=== PATIENT | male | born 1955 | race Caucasian/White ===

== ENCOUNTER 2016-12-03 16:54 | Emergency (ER) | payer MEDICARE, MEDICAID ==
[2016-12-03 18:00] VITALS: BP 152/80
--- NOTE | 2016-12-03 19:07 | UC ---
UC General HPI - HPI Summary HPI Summary: ABSCESS ON LEFT BUTOCKS AND GLUTEAL CREASE. HAS HAD FIRM ABSCESS FOR A NUMBER OF WEEKS, PAIN WORSE SINCE YESTERDAY. HAD BEEN SCHEDULED FOR SURGERY RECENTLY BUT "CHICKENED OUT". NOW PAIN AND SWELLING ARE WORSENING, WOULD LIKE TO GET IT TAKEN CARE OF. NO FEVER. NO SIGNIFICANT DRAINAGE. DOES NOT EXTEND INTO ANUS, NO PAIN WITH BOWEL MVMT. PAIN WITH PRESSURE TOUCH AND SITTING DOWN. - History of Current Complaint Chief Complaint: UC Stated Complaint: BOIL ON BOTTOM Time Seen by Provider: 12/03/16 18:42 Hx Obtained From: Patient Onset/Duration: Gradual Onset, Lasting Weeks, Worse Since - LAST TWO DAYS Onset Severity: Moderate Current Severity: Severe Associated Signs & Symptoms: Negative: Anticoagulation Therapy, Back Pain, Confusion, Chest Pain, Decreased Responsiveness, Diarrhea, Dysuria, Fever, Headache, Melena, Vomiting - Allergy/Home Medications Allergies/Adverse Reactions: Allergies Allergy/AdvReac Type Severity Reaction Status Date / Time Corticosteroids Allergy Intermediate Swelling Verified 12/03/16 17:49 Prednisone Allergy Intermediate Swelling Verified 12/03/16 17:49 Bee Venom Allergy Unknown Verified 12/03/16 17:49 Reaction Details Home Medications: Home Medications Mupirocin 2% CREAM* [Bactroban 2% CREAM*] 1 applic TOPICAL TID 12/03/16 [ History Confirmed 12/03/16] Spironolactone & Hydrochloroth [Aldactazide 25-25 mg-] 1 tab PO DAILY 12/03/16 [ History Confirmed 12/03/16] PMH/Surg Hx/FS Hx/Imm Hx Previously Healthy: Yes Cardiovascular History Of: Reports: Cardiac Disorders - [place], 2 stents, Hypertension Denies: Congestive Heart Failure Respiratory History Of: Reports: COPD, Asthma, Pneumonia, Pulmonary Embolism Cancer History Of: Denies: Lung Cancer - Surgical History Surgical History: Yes Surgery Procedure, Year, and Place: LEFT THUMB - Family History Known Family History: Positive: Respiratory Disease - COPD, Other - Both parents -- [place] - Social History Occupation: Employed Full-time Lives: With Family Alcohol Use: Weekly Alcohol Amount: 3-4 Substance Use Type: None Substance Use Comment - Amount & Last Used: smokes marijuana once/twice a month Smoking Status (MU): Former Smoker Amount Used/How Often: chain smoker- "if i'm awake, i'm smoking" Have You Smoked in the Last Year: Yes When Did the Patient Quit Smoking/Using Tobacco: quit 08/2016 - Immunization History Most Recent Influenza Vaccination: 07/2016 Most Recent Tetanus Shot: 2012 Most Recent Pneumonia Vaccination: 2013 Review of Systems Constitutional: Negative Skin: Other - ABSCESS GLUTEAL CLEFT AND LEFT MEDIAL GLUTEAL CREASE Eyes: Negative ENT: Negative Respiratory: Negative Cardiovascular: Negative Gastrointestinal: Negative Genitourinary: Negative Motor: Negative Neurovascular: Negative Musculoskeletal: Negative Neurological: Negative Psychological: Negative All Other Systems Reviewed And Are Negative: Yes Physical Exam Triage Information Reviewed: Yes Appearance: Well-Appearing, Well-Nourished, Pain Distress Vital Signs: Initial Vital Signs Temp 98.4 F 12/03/16 17:54 Pulse 82 12/03/16 17:54 Resp 20 12/03/16 17:54 BP 152/80 12/03/16 17:54 Pulse Ox 91 12/03/16 17:54 Vital Signs Reviewed: Yes Eye Exam: Normal ENT Exam: Normal ENT: Positive: Normal ENT inspection, Hearing grossly normal, Pharynx normal, TMs normal Dental Exam: Normal Neck exam: Normal Neck: Positive: Supple, Nontender, No Lymphadenopathy Respiratory Exam: Normal Respiratory: Positive: Chest non-tender, Lungs clear, Normal breath sounds, No respiratory distress, No accessory muscle use Cardiovascular Exam: Normal Cardiovascular: Positive: RRR, No Murmur, Pulses Normal Abdominal Exam: Normal Abdomen Description: Positive: Nontender, No Organomegaly Musculoskeletal Exam: Normal Musculoskeletal: Positive: Strength Intact, ROM Intact Neurological Exam: Normal Psychological Exam: Normal Psychological: Positive: Normal Response To Family Skin: Positive: Other - INDURATED ABSCESS GLUTEAL CLEFT AND MEDIAL LEFT GLUTEAL CREASE Course/Dx - Differential Dx - Multi-Symptom Differential Diagnoses: Other - PILONIDAL CYST GLUTEAL ABSCESS Provider Diagnoses: PILONIDAL CYST. INDURATED ABSCESS LEFT MEDIAL GLUTEAL CREASE Discharge - Discharge Plan Condition: Stable Disposition: HOME Prescriptions: HYDROcodone/ACETAMIN 5-325 MG* [[place] 5-325 TAB*] 1 tab PO Q8H PRN #15 tab MDD THREE TABS PRN Reason: Pain Sulfamethox/Trimethoprim DS* [Bactrim DS 800/160 TAB*] 1 tab PO BID #20 tab Patient Education Materials: Pilonidal Cyst (GEN), Abscess (ED) Referrals: Nic Dodson MD [Primary Care Provider] - Markus Benson MD [Medical Doctor] - Images Front/Back of Body, Lg ([place]): 1 - 12 CM OF TENDER INDURATION ALONG LEFT MEDIAL GLUTEAL CREASE AND GLUTEAL CLEFT
== END 2016-12-03 19:13 | disposition home or self-care (01) ==
LOC: UCEAST 16:54
DX: L05.01 Pilonidal cyst with abscess (principal); Z88.8 Allergy status to other drugs, medicaments and biological substances; F12.90 Cannabis use, unspecified, uncomplicated; Z87.891 Personal history of nicotine dependence
CPT/HCPCS: 99212; G0463

== ENCOUNTER 2017-02-24 02:11 | Inpatient (IN) | payer MEDICARE, MEDICAID ==
[2017-02-24] MEDS ORDERED: NS 0.9% 1000 ML* 1,000 ML IV ONE (02:29)
[2017-02-24 02:56] LABS: Hematocrit 40 % (42-52); Hemoglobin 12.9 g/dl (14.0-18.0); Mean Corpuscular HGB Conc 33 g/dl (31-36); Mean Corpuscular Hemoglobin 30 pg (27-31); Mean Corpuscular Volume 92 fL (80-94); Red Blood Count 4.31 10^6/ul (4.0-5.4); Red Cell Distribution Width 16 % (10.5-15); White Blood Count 14.4 10^3/ul (3.5-10.8)
[2017-02-24 03:03] LABS: Add Diff/Slide Review? Slide Review Added; Comments Flag Yes
[2017-02-24 03:11] LABS: Albumin 3.9 g/dL (3.2-5.2); BUN/Creatinine Ratio 15.8 (8-20); C Reactive Protein 6.56 mg/L (< 5.00); Calcium 9.1 mg/dL (8.6-10.3); EGFR Non-African American 80.1 (>60); Potassium 4.5 mmol/L (3.5-5.0); Total Bilirubin 0.4 mg/dL (0.2-1.0); Total Protein 6.9 g/dL (6.4-8.9)
[2017-02-24 03:22] LABS: Mean Platelet Volume 9 um3 (7.4-10.4)
[2017-02-24] MEDS ORDERED: Iohexol 300* (CONTRAST) 10 ML SDV IV ONE (04:20)
[2017-02-24] MEDS ORDERED: Ondansetron INJ* 2 MG/ML VIAL ONE (04:20)
[2017-02-24] MEDS ORDERED: Ondansetron INJ* 2 MG/ML VIAL IV ONE (04:27)
--- NOTE | 2017-02-24 05:52 | ED ---
I, Doctor,Brandy, scribed for Markus Vela MD on 02/24/17 at 0244 . GI/ HPI - HPI Summary HPI Summary: 61 year old male brought to [facility] by EMS with bloody stool and abdominal pain beginning at 1:00 am today. He describes the pain as 'cramping' and reports increased nausea as well; he rates his pain as 6/10. Additionally, pt describes his stool as very loose and watery. He has not experienced any episodes similar to this in the past. He is currently taking blood thinners and has a PMHx of [place] a few years ago. - History of Current Complaint Chief Complaint: EDGIBleed Time Seen by Provider: 02/24/17 02:26 Stated Complaint: RECTAL BLEED Hx Obtained From: Patient Onset/Duration: Started Hours Ago Severity: Moderate Current Severity: Moderate Pain Intensity: 6 - on 0-10 numerical scale Location of Pain: Diffuse Pain Characteristics: Cramping Associated Signs and Symptoms: Positive: Nausea, Blood w/Stool, Diarrhea. Negative: Fever - Additional Pertinent History Primary Care Physician: [email or web address] - Allergy/Home Medications Allergies/Adverse Reactions: Allergies Allergy/AdvReac Type Severity Reaction Status Date / Time Corticosteroids Allergy Intermediate Swelling Verified 12/03/16 17:49 Prednisone Allergy Intermediate Swelling Verified 12/03/16 17:49 Bee Venom Allergy Unknown Verified 12/03/16 17:49 Reaction Details Home Medications: Home Medications Aspirin 81 MG TAB 81 mg PO DAILY 02/24/17 [History Confirmed 02/24/17] Combivent Respimat (NF) 2 puff INH DAILY 02/24/17 [History Confirmed 02/24/17] Furosemide TAB* [Lasix TAB*] 1 tab PO DAILY 02/24/17 [History Confirmed 02/24/17 ] Perforomist NEB.SOLN*(NF) 20 mcg INH DAILY 02/24/17 [History Confirmed 02/24/17] Testosterone Cypionate 1 ml IM SEE INSTRUCTIONS 02/24/17 [History Confirmed ] PMH/Surg Hx/FS Hx/Imm Hx Cardiovascular History: Reports: Hx Coronary Artery Disease, Hx Hypertension, Hx Myocardial Infarction Denies: Hx Cardiac Arrest, Hx Congestive Heart Failure, Hx Hypotension, Hx Syncope Respiratory History: Reports: Hx Asthma, Hx Chronic Obstructive Pulmonary Disease (COPD), Hx Pneumonia, Hx Pulmonary Embolism, Other Respiratory Problems/ Disorders - PN Denies: Hx Lung Cancer - Surgical History Surgery Procedure, Year, and Place: LEFT THUMB Hx Anesthesia Reactions: No - Immunization History Date of Tetanus Vaccine: 2013 Date of Influenza Vaccine: 2013 Infectious Disease History: No Infectious Disease History: Denies: Traveled Outside the [place] in Last 30 Days - Family History Known Family History: Positive: Respiratory Disease - COPD, Other - Both parents -- [place] - Social History Alcohol Use: Weekly Alcohol Amount: 3-4 Hx Substance Use: Yes Substance Use Comment - Amount & Last Used: smokes marijuana once/twice a month Hx Tobacco Use: Yes Smoking Status (MU): Current Every Day Smoker Amount Used/How Often: chain smoker- "if i'm awake, i'm smoking" Have You Smoked in the Last Year: Yes Review of Systems Negative: Fever Positive: Abdominal Pain, Diarrhea - very loose stool with blood , Nausea All Other Systems Reviewed And Are Negative: Yes Physical Exam Triage Information Reviewed: Yes Vital Signs On Initial Exam: Initial Vitals Temp Pulse Resp BP Pulse Ox 97.2 F 70 18 110/59 96 02/24/17 02:15 02/24/17 02:15 02/24/17 02:15 02/24/17 02:15 02/24/17 02:15 Vital Signs Reviewed: Yes Appearance: Positive: Well-Appearing, Pain Distress - mild discomfort Skin: Positive: Warm Head/Face: Positive: Normal Head/Face Inspection Eyes: Positive: ASIA ENT: Positive: Hearing grossly normal Neck: Positive: Supple Respiratory/Lung Sounds: Positive: Breath Sounds Present Cardiovascular: Positive: RRR Abdomen Description: Positive: Soft, Other: - mild diffuse abd tenderness. Negative: Distended Bowel Sounds: Positive: Present Musculoskeletal: Positive: Strength/ROM Intact Neurological: Positive: Alert, Oriented to Person Place, Time Diagnostics - Vital Signs Vital Signs Temp Pulse Resp BP Pulse Ox 02/24/17 02:15 97.2 F 70 18 110/59 96 - Laboratory Lab Results: Lab Results 02/24/17 02/24/17 02/24/17 Range/Units 02:20 02:20 04:25 WBC 14.4 H (3.5-10.8) 10^3/ul RBC 4.31 (4.0-5.4) 10^6/ul Hgb 12.9 L (14.0-18.0) g/dl Hct 40 L (42-52) % MCV 92 (80-94) fL MCH 30 (27-31) pg MCHC 33 (31-36) g/dl RDW 16 H (10.5-15) % Plt Count 303 (150-450) 10^3/ul MPV 9 (7.4-10.4) um3 Neut % (Auto) 68.6 (38-83) % Lymph % (Auto) 19.5 L (25-47) % [place] % (Auto) 9.0 (1-9) % Eos % (Auto) 2.0 (0-6) % Baso % (Auto) 0.9 (0-2) % Absolute Neuts (auto) 9.9 H (1.5-7.7) 10^3/ul Absolute Lymphs (auto) 2.8 (1.0-4.8) 10^3/ul Absolute Monos (auto) 1.3 H (0-0.8) 10^3/ul Absolute Eos (auto) 0.3 (0-0.6) 10^3/ul Absolute Basos (auto) 0.1 (0-0.2) 10^3/ul Absolute Nucleated RBC 0.02 10^3/ul Nucleated RBC % 0.2 Sodium 139 (133-145) mmol/L Potassium 4.5 (3.5-5.0) mmol/L Chloride 103 (101-111) mmol/L Carbon Dioxide 29 (22-32) mmol/L Anion Gap 7 (2-11) mmol/L BUN 15 (6-24) mg/dL Creatinine 0.95 (0.67-1.17) mg/dL Est GFR ( Amer) 103.0 (>60) Est GFR (Non-Af Amer) 80.1 (>60) BUN/Creatinine Ratio 15.8 (8-20) Glucose 113 H (70-100) mg/dL Lactic Acid 1.9 (0.5-2.0) mmol/L Calcium 9.1 (8.6-10.3) mg/dL Total Bilirubin 0.40 (0.2-1.0) mg/dL AST 36 (13-39) U/L ALT 42 (7-52) U/L Alkaline Phosphatase 71 (34-104) U/L C-Reactive Protein 6.56 H (< 5.00) mg/L Total Protein 6.9 (6.4-8.9) g/dL Albumin 3.9 (3.2-5.2) g/dL Globulin 3.0 (2-4) g/dL Albumin/Globulin Ratio 1.3 (1-3) Lipase 32 (11.0-82.0) U/L Result Diagrams: 02/24/17 02:20 02/24/17 02:20 Lab Statement: Any lab studies that have been ordered have been reviewed, and results considered in the medical decision making process. - CT CT A/P W [CT] CT Interpretation Completed By: Radiologist - Findings: No bowel obstruction, frree air, or free fluid. Sigmoid diverticulosis. No diverticulitis or colits. Normal kidneys and urinary tracts. Nondistended urinary bladder. Normal spleen. Normal liver. Normal gallbladder. Normal pancreas. Normal adrenal glands. 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 This is a chronic nonspecific infiltration of the fat of the root of the mesentery. Fine atherosclerotic changes of the distal aorta. Atherosclerotic changes of the iliac vessels. Please note that the celiac artery and SMA are patent but they are very small. Is there any reason for the patient to have a low flow state? 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 Overall no acute abnormalities are identified. - EKG 05:18 Cardiac Rate: NL - 73 bpm EKG Rhythm: Sinus Rhythm - NSR ST Segment: Normal Ectopy: None GIGU Course/Dx - Diagnoses Provider Diagnoses: GI bleed - Physician Notifications Discussed Care Of Patient With: 05:30 - Discussed care of pt with Dr. Brennan ( Hospitalist) Instructed by Provider To: Admit As Inpatient Discharge - Discharge Plan Condition: Guarded Disposition: ADMITTED TO [facility] documentation as recorded by the Doctor hernández Tahera accurately reflects the service I personally performed and the decisions made by me, Markus Vela MD.
--- NOTE | 2017-02-24 07:58 | RAD ---
CLINICAL HISTORY: Pain, lower abdominal pain COMPARISON: November 24, 2012 TECHNIQUE: Multiple contiguous axial CT scans were obtained of the abdomen and pelvis after the administration of intravenous contrast. Coronal and sagittal multiplanar reformations are submitted for review. Oral contrast was administered. Delayed images were obtained through the abdomen and pelvis. FINDINGS: LUNG BASES: The lung bases are clear. LIVER: The liver is diffusely low in attenuation compared to the spleen. There are no focal hepatic parenchymal masses. BILE DUCTS: There is no intrahepatic or extrahepatic biliary dilatation. GALLBLADDER: The gallbladder is normal, without pericholecystic inflammatory change. PANCREAS: The pancreas is normal, without mass or ductal dilatation. SPLEEN: Normal in size and appearance. UPPER GI TRACT: Evaluation of the gastrointestinal tract is limited by incomplete gastric distention. The upper GI tract is unremarkable. SMALL BOWEL AND MESENTERY: The small bowel is normal in contour, course, and caliber. There is no obstruction or dilatation. There are subcentimeter short axis lymph nodes of the upper mesentery. There is mild stranding of the mesenteric fat. COLON: There is scattered diverticula of the distal colon.. There is no pericolonic inflammatory change. There is a tubular, vermiform, hollow viscus that is blind ending, and originates from the cecum, consistent with a normal appendix. There is no periappendiceal inflammatory change. ADRENALS: Normal bilaterally. KIDNEYS: The kidneys are normal in shape, size, contour, and axis. There is no hydronephrosis or nephrolithiasis. BLADDER: The bladder is collapsed and is not well evaluated PELVIC ORGANS: The prostate gland is normal. The seminal vesicles are symmetric. AORTA: There is calcific atherosclerotic disease of the abdominal aorta and its branches, without aneurysmal dilatation. 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 ABDOMINAL WALL: There is no evidence for abdominal wall hernia. BONES AND SOFT TISSUES: There are mild diffuse degenerative changes. OTHER: None IMPRESSION: 1. FATTY LIVER. 2. ATHEROSCLEROSIS. 3. SUBCENTIMETER SHORT AXIS] 4. MESENTERIC LYMPH NODES WITHOUT LYMPHADENOPATHY BY SIZE CRITERIA. 5. THERE IS MINIMAL STRANDING OF THE MESENTERIC FAT SUGGESTIVE OF MESENTERIC PANNICULITIS
[2017-02-24] MEDS ORDERED: Ipratropium 0.5MG/2.5ML NEB* 0.5 MG/2.5 ML NEB.SOLN INH PRN (08:31)
[2017-02-24] MEDS ORDERED: Acetaminophen TAB* 325 MG PO PRN (09:38)
[2017-02-24] MEDS: Budesonide NEB* 0.5 MG/2 ML NEB.SOLN INH SCH ×2 (10:06→19:57)
[2017-02-24] MEDS: Aspirin Low Dose CHEW TAB* 81 MG PO SCH (10:14)
[2017-02-24] MEDS: Atorvastatin* 80 MG TAB PO SCH (10:14)
[2017-02-24] MEDS: Metoprolol Succinate XL TAB* 50 MG PO SCH (10:14)
[2017-02-24] MEDS: NS 0.9% 1000 ML* 1,000 ML IV SCH ×2 (10:58→21:21)
[2017-02-24 11:04] LABS: Urine Bilirubin Negative (Negative); Urine Glucose Negative (Negative); Urine Nitrite Negative (Negative)
[2017-02-24] MEDS: Ondansetron INJ* 2 MG/ML VIAL IV PRN (12:04)
[2017-02-24] MEDS: Simethicone CHEW TAB* 80 MG PO PRN ×2 (14:49→21:20)
--- NOTE | 2017-02-24 15:05 | HP ---
CC: Dr. Dodson. HISTORY AND PHYSICAL: DATE OF ADMISSION: 02/24/17 PRIMARY CARE PHYSICIAN: Dr. Dodson. CHIEF COMPLAINT: Abdominal pain and bloody diarrhea. HISTORY OF PRESENT ILLNESS: Mr. Davalos is a 61-year-old male with past medical history of hypertension; CAD, status post [place] and stent placement in 2015; COPD, on home oxygen, who presents to the hospital with abdominal pain and bloody diarrhea. The patient states for the past few weeks he has felt weak and somewhat more short of breath than normal. He states he was recently found to have a low testosterone and got a prescription for testosterone injections; however has not started this yet. Yesterday, he noticed in the afternoon that he had more watery stool than usual, when he wiped he noticed that there was some blood mixed in with the stool. Early this morning around 1 a.m. he awoke with acute crampy abdominal pain and the urge to go to the bathroom. He went to the toilet and had very watery bloody stool that he said likely consistent mostly of just blood. After this episode, he had some lightheadedness and near syncope. He went to his bed and laid down for a bit, then the abdominal pain recurred and he had another episode of bloody bowel movement and again a near syncopal episode. At this point, he called his neighbors as well as EMS and was taken here to the hospital. He said that since coming to the hospital, he has had 2 additional episodes; however, he felt that the last one was clearing up a little bit and seemed to have a bit more normal stool mixed in. He states the abdominal pain is crampy and relatively diffuse. He says the discomfort is temporarily when he moves his bowels. He has had some nausea but no emesis. The patient has been on antibiotics, the last time was about a month and a half to 2 months ago, which he reports was for a cyst on his buttocks. Denies any sick contacts. He states that yesterday for food he had some cereal and toast in the morning, no lunch and that at night had some chicken, rice, asparagus and potatoes. He states the night before he had some goulash that had some beef in it. This was frozen that his sister had made sometime recently. Again , he denies sick contacts. He is on aspirin and Brilinta. He denies any fever, chills, dysuria, hematuria. He has never had a colonoscopy before. PAST MEDICAL HISTORY: CAD, status post [place] with stent placement in July 2015. Hypertension. COPD, on home oxygen 2 to 3 L. PAST SURGICAL HISTORY: Repair of a broken arm. ALLERGIES: STEROIDS and BEE STINGS. FAMILY HISTORY: Significant for father with COPD and cancer in both his mother and father. SOCIAL HISTORY: The patient is a former [id number] smoker, quit in 2016. He states he drinks 2 to 3 beers up to 2 to 3 times a week. Denies any illicit drug use. REVIEW OF SYSTEMS: A 12-point review of systems negative except for that as noted in the HPI. PHYSICAL EXAMINATION GENERAL: The patient is a middle-aged male that appears slightly older than stated age, lying in bed, in no apparent distress. VITAL SIGNS: On admission, temperature 97.2, heart rate of 70, respiratory rate of 18, O2 saturation 96% on 2 L, blood pressure 110/59. HEENT: Pupils equal, round and reactive to light and accommodation. Anicteric sclerae. Moist mucous membranes. NECK: No cervical adenopathy. LUNGS: Clear to auscultation bilaterally. No wheezes, rales or rhonchi. CARDIOVASCULAR: Regular rate and rhythm. S1, S2. No murmurs, gallops, or rubs. ABDOMEN: Soft, mildly distended. Mild tenderness to palpation diffusely. No rebound or guarding. Hyperactive bowel sounds. EXTREMITIES: No cyanosis, clubbing or edema. NEUROLOGIC: The patient is alert and oriented x3. No focal neurological deficits. DIAGNOSTIC STUDIES/LABORATORY DATA: White blood cell count of 14.4, hemoglobin of 12.9, hematocrit of 40, platelets of 303. Sodium 139, potassium 4.5, chloride 103, carbon dioxide 29, BUN of 15, creatinine of 0.95, glucose of 113, lactic acid of 1.9, calcium of 9.1. LFTs within normal limits. CRP of 6.5 , lipase of 32. EKG, personally reviewed, shows normal sinus rhythm. CT of the abdomen and pelvis shows fatty liver atherosclerosis, mesenteric lymph nodes without lymphadenopathy. 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 ASSESSMENT AND PLAN: Abdominal pain and bloody diarrhea in a 61-year-old male with a past medical history of hypertension, coronary artery disease status post myocardial infarction, and chronic obstructive pulmonary disease. 1. Bloody diarrhea. CT shows some evidence of panniculitis, however no evidence of colitis, this could potentially be an infectious etiology. Ordered a C. diff stool culture and a fecal lactoferrin. Also an INR was not ordered in the emergency department, I will add this on. Not entirely consistent with ischemic colitis, no CT changes. As per patient report, the bleeding seems to be slowing. We will continue to trend his hemoglobin and hematocrit for now. The patient does not need a transfusion at this point. We will continue the patient's baby aspirin and we will hold ticagrelor. Will hold off on a GI consult for now and see how the patient progresses through the day, see if any of his infectious workup is positive. We will keep him on a clear liquid diet for now. 2. Coronary artery disease, status post myocardial infarction. Continue metoprolol, statin, baby aspirin. Hold on ticagrelor for now. 3. Chronic obstructive pulmonary disease. Continue home oxygen. Continue ipratropium, budesonide, p.r.n. albuterol. 4. Code status. The patient is a full code. 5. Surrogate decision maker is patient's sister Siobhan Ramos whose number is . TIME SPENT: Total time spent on this admission 40 minutes, with over half the time spent [id number] with the patient, counseling and coordinating care. ADDENDUM: C diff negative, fecal lactoferrin negative. Have asked GI to evaluate , possible colonoscopy in the morning. [id number]/[facility] #: [id number] [place]
[2017-02-24] MEDS ORDERED: PEG 3000 GI LAVAGE* 1 GALLON PO ONE (17:00)
--- NOTE | 2017-02-24 20:09 | CONS ---
CONSULTATION REPORT: DATE OF CONSULT: 02/24/17 REASON FOR CONSULT: Lower GI bleed. NARRATIVE: Mr. Davalos is a 61-year-old gentleman with a history of COPD, on chronic oxygen; history of CAD, on Brilinta after stent placement 2 years ago, who presents with hematochezia. Yesterday, quite suddenly, he had a bowel movement and noticed blood on the tissue paper. He then awoke at 1 in the morning and he had another bowel movement; this one had a significant amount of blood in the water associated with clots. He felt somewhat faint and presented to the emergency room where again he had 1 or 2 subsequent episodes of rectal bleeding. Vital signs were stable. His initial hemoglobin was 12.9. Further workup has included stool showing him to be Hemoccult positive, C. difficile negative. He did have CAT scan of the abdomen, which showed some atherosclerosis and some mild adenopathy, but no significant colonic pathology. He has been admitted to the general medical floor. He has had a subsequent bowel movement that was brown, but mixed with a small amount of blood. The patient denies any previous history of GI bleeding. He has never had a colonoscopy. PAST MEDICAL HISTORY: Does include CAD, he had a stent placed about 2 years ago and has been on a baby aspirin and Brilinta since; history of COPD, on 2 to 3 L of oxygen chronically; hypertension. He also has had a sebaceous cyst involving his tail bone, which has been monitored by his surgeon. PAST SURGICAL HISTORY: He has had no abdominal surgeries. MEDICATIONS: His at home medicines include: 1. Baby aspirin. 2. Combivent inhaler. 3. Lipitor. 4. Pulmicort inhaler. 5. Lasix. 6. Brilinta. 7. Metoprolol. FAMILY HISTORY: Negative for colorectal cancer. REVIEW OF SYSTEMS: He denies any melena, nausea, or vomiting. He does have some cramping that precedes the bowel movement, but no significant abdominal pain. He states in the last year, he has been feeling very weak, but this has not recently changed. He was found to have a low testosterone level and was prescribed a testosterone supplement, but he has not started that yet. PHYSICAL EXAM: He is a pleasant, obese gentleman, sitting in chair, on oxygen, but in no apparent distress. Blood pressure is 134/72, heart rate is 78 and regular, temperature is 97.4. Lungs reveal a prolonged expiratory phase. Cardiac exam reveals very distant heart sounds, but a regular rhythm. Abdomen is obese and soft without any significant tenderness. LABORATORY DATA: Include a white count of 14.4, hemoglobin of 12.9, MCV of 92, platelets of 303,000. BUN of 15, creatinine of 0.95. IMPRESSION: A 61-year-old gentleman presenting with hematochezia. He does have some mild cramping before a bowel movement, but no significant abdominal pain. He has never had a colonoscopy. Possibilities include diverticular causes, less likely ischemic colitis or malignancy. I explained this to the patient in great detail. We discussed the importance of colonoscopy to identify the cause of bleeding. He is at a slightly higher risk periprocedure given his pulmonary disease and cardiac disease, but I do believe he could tolerate it with moderate sedation. The patient is motivated for the procedure and we therefore will proceed in that fashion for tomorrow. We will prep him today. CC: Dr. Dodson* [id number]/[facility] #: [id number] [place]
[2017-02-25] MEDS: NS 0.9% 1000 ML* 1,000 ML IV SCH (07:19)
[2017-02-25 07:45] LABS: BUN/Creatinine Ratio 13.3 (8-20); Calcium 7.4 mg/dL (8.6-10.3); EGFR African American 120.3 (>60); EGFR Non-African American 93.6 (>60); Potassium 4.4 mmol/L (3.5-5.0)
[2017-02-25] MEDS: Budesonide NEB* 0.5 MG/2 ML NEB.SOLN INH SCH ×2 (07:50→21:16)
[2017-02-25 08:01] LABS: Hematocrit 30 % (42-52); Hemoglobin 9.9 g/dl (14.0-18.0); Mean Corpuscular HGB Conc 33 g/dl (31-36); Mean Corpuscular Hemoglobin 31 pg (27-31); Mean Corpuscular Volume 93 fL (80-94); Mean Platelet Volume 9 um3 (7.4-10.4); Red Blood Count 3.24 10^6/ul (4.0-5.4); Red Cell Distribution Width 16 % (10.5-15); White Blood Count 10.1 10^3/ul (3.5-10.8)
[2017-02-25] MEDS: Simethicone CHEW TAB* 80 MG PO PRN ×3 (08:08→22:41)
[2017-02-25] MEDS: Atorvastatin* 80 MG TAB PO SCH (08:08)
[2017-02-25] MEDS: Metoprolol Succinate XL TAB* 50 MG PO SCH (08:09)
[2017-02-25] MEDS: Aspirin Low Dose CHEW TAB* 81 MG PO SCH (08:09)
[2017-02-25] MEDS ORDERED: Meperidine SYRINGE* 50 MG/ML ONE (13:24)
[2017-02-25] MEDS ORDERED: Midazolam* 1 MG/ML 10 ML VIAL (10 MG) ONE (13:24)
--- NOTE | 2017-02-25 16:27 | PN ---
Subjective Date of Service: 02/25/17 Interval History: HOSPITALIST PROGRESS NOTE Patient seen and examined at bedside. His major complaint is about the colonoscopy prep that he refuses to finish. Denies abdominal pain. Family History: Unchanged from Admission Social History: Unchanged from Admission Past Medical History: Unchanged from Admission Objective Active Medications: Acetaminophen (Tylenol Tab*) 650 mg PO Q4H PRN PRN Reason: PAIN Albuterol (Ventolin Hfa Inhaler*) 1 puff INH Q4H PRN PRN Reason: SOB/WHEEZING Aspirin (Aspirin Low Dose Tab*) 81 mg PO DAILY REPLACED BY [facility] Last Admin: 02/25/17 08:09 Dose: 81 mg Atorvastatin Calcium (Lipitor*) 80 mg PO DAILY REPLACED BY [facility] Last Admin: 02/25/17 08:08 Dose: 80 mg Budesonide (Pulmicort Neb*) 0.5 mg INH RT.BID REPLACED BY [facility] Last Admin: 02/25/17 07:50 Dose: 0.5 mg Ipratropium [place] (Atrovent 0.5 Mg Neb.Cyn*) 0.5 mg INH BID PRN PRN Reason: SHORTNESS OF BREATH Metoprolol Succinate (Toprol Xl Tab*) 50 mg PO DAILY REPLACED BY [facility] Last Admin: 02/25/17 08:09 Dose: 50 mg Ondansetron HCl (Zofran Inj*) 4 mg IV Q6H PRN PRN Reason: NAUSEA Last Admin: 02/24/17 12:04 Dose: 4 mg Simethicone (Mylicon*) 80 mg PO Q6H PRN PRN Reason: Cramping Last Admin: 02/25/17 08:08 Dose: 80 mg Vital Signs 02/25/17 02/25/17 15:32 15:36 Temperature 97.5 F Pulse Rate 139 73 Respiratory 24 Rate Blood Pressure 123/52 (mmHg) O2 Sat by Pulse 98 Oximetry Oxygen Devices in Use Now: Nasal Cannula Appearance: Elderly obese male sitting up in a chair in NAD. Eyes: No Scleral Icterus Ears/Nose/Mouth/Throat: Mucous Membranes Moist Neck: Trachea Midline Respiratory: Symmetrical Chest Expansion and Respiratory Effort, - - BS+ bilaterally decreased with no added sounds Cardiovascular: RRR - Normal S1 and S2 Abdominal: NL Sounds; No Tenderness; No Distention Extremities: - - Bilateral LE edema Neurological: Alert and Oriented x 3, NL Muscle Strength and Tone Lines/Tubes/Other Access: Clean, Dry and Intact Peripheral IV Result Diagrams: 02/25/17 04:50 02/25/17 04:50 Assess/Plan/Problems-Billing Assessment: Mr. Davalos is a 61yo F with PMH of CAD s/p stent, HTN, COPD on home O2, who presented to ED with painless hematochezia. - Patient Problems (1) Hematochezia Comment: - Suspect diverticular bleed is the etiology. - For colonoscopy today with GI follow up. (2) Acute blood loss anemia Comment: - Last Hb 9.9. - Continue to monitor H/H. (3) Coronary artery disease Comment: - No complaints of chest pain. - Continue ASA, Atorvastin, and Metoprolol. - Brilinta on hold - will contact his boot repairer to see if double anti- platelet therapy is still indicated. (4) COPD (chronic obstructive pulmonary disease) Comment: - Stable. - Continue bronchodilators and supplemental O2. (5) DVT prophylaxis Comment: - SCDs. (6) Full code status
[2017-02-25 21:01] LABS: Hematocrit 32 % (42-52); Hemoglobin 10.5 g/dl (14.0-18.0)
[2017-02-25 21:04] LABS: Comments Flag Yes
--- NOTE | 2017-02-25 23:15 | PRO ---
PROCEDURE NOTE: DATE OF PROCEDURE: 02/25/17 - inpatient, [facility] 453-01 PROCEDURE: Colonoscopy. INDICATION: Rectal bleeding. REFERRING PHYSICIAN: Dr. Laguerre. MEDICATIONS GIVEN: 1. 25 mg of IV Demerol. 2. 2 mg of IV Versed. PROCEDURE IN DETAIL: After the colonoscopy procedure, including risks, benefits and alternatives not limited to perforation, surgery, and/or were explained to Mr. Davalos, written consent was then obtained. The patient has severe COPD and is oxygen dependent. He wears 3 L of oxygen all day long. He also has coronary artery disease and recently had a stent placed and is on Brilinta for that. After the colonoscopy procedure, including risks, benefits and alternatives not limited to perforation, surgery, and/or were explained to the patient, written consent was then obtained, IV medication was given and a rectal exam was performed. It was unremarkable. An Olympus colonoscope was then inserted into the patient's rectum and advanced very carefully through the entirety of the colon and into the cecal base. Careful and thorough inspection within the cecal base did not reveal any abnormalities. However, the quality of the preparation on the right side of the colon was fairly poor. The patient refused to take the last 25% of his colonoscopy prep this morning, even though he was encouraged to do so by his hospitalist doctor. Thus, lesions may have been missed due to the poor quality of the preparation. I did try and suction and wash as much of this as I could, however , the quality of the preparation still remained poor. Scope was then withdrawn in a very careful manner over the next 8 minutes through the remainder of the colon. He did have diverticulosis, both of the right and left side of the colon , it was mild in nature. No bleeding was seen. No masses were seen in the rectum. I could not do a retroflexion maneuver due to the patient's discomfort. However, a slow pull-through through the anal canal did reveal very small hemorrhoidal tissue. Scope was withdrawn from the the patient. He tolerated the procedure well and was returned to his hospital room in stable condition. IMPRESSION: 1. Complete colonoscopy into the cecum. 2. Very mild diverticulosis. 3. Small internal hemorrhoids. 4. Poor quality of preparation. 5. No obvious etiology was seen for his rectal bleeding. At this point, I have to assume it was diverticular in nature. CC: Dr. Dodson* [id number]/[facility] #: [id number] [facility] HOSPITALFannie
[2017-02-26 05:43] LABS: Hematocrit 29 % (42-52); Hemoglobin 9.3 g/dl (14.0-18.0)
[2017-02-26] MEDS ORDERED: Nitroglycerin TAB 0.4 MG* 0.4 MG TAB ONE (07:54)
[2017-02-26] MEDS: Aspirin Low Dose CHEW TAB* 81 MG PO SCH (07:56)
[2017-02-26] MEDS: Nitroglycerin TAB 0.4 MG* 0.4 MG TAB SL PRN ×2 (07:57→08:19)
[2017-02-26] MEDS: Budesonide NEB* 0.5 MG/2 ML NEB.SOLN INH SCH ×2 (08:04→19:30)
[2017-02-26] MEDS: Atorvastatin* 80 MG TAB PO SCH (08:35)
[2017-02-26] MEDS: Metoprolol Succinate XL TAB* 50 MG PO SCH (09:22)
[2017-02-26] MEDS: Simethicone CHEW TAB* 80 MG PO PRN (09:22)
[2017-02-26] MEDS: Albuterol HFA INHALER* 8 gm MDI INH PRN (09:22)
[2017-02-26] MEDS ORDERED: Furosemide IV* 10 MG/ML 2 ML VIAL (20 MG) IV ONE (10:17)
[2017-02-26] MEDS: Ondansetron INJ* 2 MG/ML VIAL IV PRN (14:10)
[2017-02-26] MEDS ORDERED: Albuterol 2.5 MG/3 ML NEB.SOL* (0.083%) INH PRN (16:08)
--- NOTE | 2017-02-26 16:08 | PN ---
Subjective Date of Service: 02/26/17 Interval History: HOSPITALIST PROGRESS NOTE Patient seen and examined at bedside. No further episodes of bleeding. Had some chest pressure earlier today, now resolved. Still dyspneic, but states not far from his baseline. Family History: Unchanged from Admission Social History: Unchanged from Admission Past Medical History: Unchanged from Admission Objective Active Medications: Acetaminophen (Tylenol Tab*) 650 mg PO Q4H PRN PRN Reason: PAIN Albuterol (Ventolin Hfa Inhaler*) 1 puff INH Q4H PRN PRN Reason: SOB/WHEEZING Last Admin: 02/26/17 09:22 Dose: 1 puff Aspirin (Aspirin Low Dose Tab*) 81 mg PO DAILY [facility] Last Admin: 02/26/17 07:56 Dose: 81 mg Atorvastatin Calcium (Lipitor*) 80 mg PO DAILY [facility] Last Admin: 02/26/17 08:35 Dose: 80 mg Budesonide (Pulmicort Neb*) 0.5 mg INH RT.BID [facility] Last Admin: 02/26/17 08:04 Dose: 0.5 mg Ipratropium [place] (Atrovent 0.5 Mg Neb.Cyn*) 0.5 mg INH BID PRN PRN Reason: SHORTNESS OF BREATH Last Admin: 02/25/17 21:16 Dose: 0.5 mg Metoprolol Succinate (Toprol Xl Tab*) 50 mg PO DAILY [facility] Last Admin: 02/26/17 09:22 Dose: 50 mg Nitroglycerin (Nitroglycerin Tab 0.4 Mg*) 0.4 mg SL Q5M PRN PRN Reason: ANGINA Last Admin: 02/26/17 08:19 Dose: 0.4 mg Ondansetron HCl (Zofran Inj*) 4 mg IV Q6H PRN PRN Reason: NAUSEA Last Admin: 02/26/17 14:10 Dose: 4 mg Simethicone (Mylicon*) 80 mg PO Q6H PRN PRN Reason: Cramping Last Admin: 02/26/17 09:22 Dose: 80 mg Vital Signs 02/26/17 02/26/17 09:18 11:46 Temperature 97.6 F Pulse Rate 66 58 Respiratory 18 Rate Blood Pressure 114/49 109/48 (mmHg) O2 Sat by Pulse 99 97 Oximetry Oxygen Devices in Use Now: Nasal Cannula Appearance: Pleasant gentleman lying in recliner in NAD. Eyes: No Scleral Icterus Ears/Nose/Mouth/Throat: Mucous Membranes Moist Neck: Trachea Midline Respiratory: Symmetrical Chest Expansion and Respiratory Effort, - - BS+ bilaterally decreased with faint wheezes Cardiovascular: RRR - Normal S1 and S2 Abdominal: NL Sounds; No Tenderness; No Distention Extremities: - - Bilateral LE pitting edema Neurological: Alert and Oriented x 3, NL Muscle Strength and Tone Lines/Tubes/Other Access: Clean, Dry and Intact Peripheral IV Nutrition: Taking PO's Result Diagrams: 02/26/17 05:22 02/25/17 04:50 Assess/Plan/Problems-Billing Assessment: Mr. Davalos is a 61yo F with PMH of CAD s/p stent, HTN, COPD on home O2, who presented to ED with painless hematochezia. - Patient Problems (1) Hematochezia Comment: - GI input appreciated - source is likely diverticular bleed. (2) Acute blood loss anemia Comment: - Last Hb 9.3. - No further episodes of hematochezia. - Continue to monitor H/H. (3) Coronary artery disease Comment: - Had some chest pain earlier today, but with no EKG changes and negative serial troponins. - Continue ASA, Atorvastin, and Metoprolol. - Brilinta on hold - Organ Pipe Voicer consult requested to see if double anti- platelet therapy is still indicated. (4) COPD (chronic obstructive pulmonary disease) Comment: - Stable. - Continue bronchodilators and supplemental O2. (5) Diastolic CHF Comment: - Showing signs of fluid overload. - Will start gentle diuresis. (6) DVT prophylaxis Comment: - SCDs. (7) Full code status
[2017-02-27 06:53] LABS: Hematocrit 30 % (42-52); Hemoglobin 9.8 g/dl (14.0-18.0); Mean Corpuscular HGB Conc 33 g/dl (31-36); Mean Corpuscular Hemoglobin 30 pg (27-31); Mean Corpuscular Volume 92 fL (80-94); Mean Platelet Volume 9 um3 (7.4-10.4); Red Blood Count 3.24 10^6/ul (4.0-5.4); Red Cell Distribution Width 16 % (10.5-15); White Blood Count 12.4 10^3/ul (3.5-10.8)
[2017-02-27] MEDS: Albuterol HFA INHALER* 8 gm MDI INH PRN ×2 (07:16→16:42)
[2017-02-27] MEDS: Budesonide NEB* 0.5 MG/2 ML NEB.SOLN INH SCH ×2 (07:17→19:29)
[2017-02-27 07:58] LABS: BUN/Creatinine Ratio 12.8 (8-20); Calcium 8.1 mg/dL (8.6-10.3); EGFR African American 115.5 (>60); EGFR Non-African American 89.8 (>60); Potassium 4.5 mmol/L (3.5-5.0)
[2017-02-27] MEDS ORDERED: Furosemide IV* 10 MG/ML 10 ML VIAL (100 MG) IV SCH (09:00)
[2017-02-27] MEDS: Atorvastatin* 80 MG TAB PO SCH (09:17)
[2017-02-27] MEDS: Simethicone CHEW TAB* 80 MG PO PRN (09:17)
[2017-02-27] MEDS: Metoprolol Succinate XL TAB* 50 MG PO SCH (09:17)
[2017-02-27] MEDS: Aspirin Low Dose CHEW TAB* 81 MG PO SCH (09:17)
--- NOTE | 2017-02-27 10:05 | CONSULT ---
Subjective Date of Service: 02/27/17 Interval History: Admission Date: 02/24/17 Date of consult 02/27/2017 Provider: Hospitalist service PRIMARY CARE PHYSICIAN: Dr. Dodson. End Touching Machine Operator: Dr. Langley CHIEF COMPLAINT: Abdominal pain and bloody diarrhea. Reason for consult: Medication management HISTORY OF PRESENT ILLNESS: Mr. Davalos is a 61-year-old male with past medical history of hypertension; CAD s /p CO 07/2015 s/p PCI/ALYSHA to single vessel non-dominant occluded proximal left circumflex, prior tobacco use quit 08/2016, severe copd on home oxygen, chronic almost daily atypical left sided focal chest pain also previously described in Dr. Langley note from 01/2017. Patient admitted with LGIB after colonoscopy felt by GI to be diverticular in nature now resolved. Patient was left on extended DAPT with aspirin and brillinta 60 mg PO BID. Patient has continued to have the atypical chest pain mostly in the morning during hospitalization short in nature similar to prior. No objective evidence of ischemia such as dynamic ekg changes or an elevated troponin. Last month because of volume overload the spironolactone/hctz was changed to 20 mg of lasix. After IVF has also developed edema and is currently receiving IV lasix with good effect so far. Breathing at baseline no dyspnea at rest but will become dyspneic with minimal activity. PAST MEDICAL HISTORY: CAD, status post CO with stent placement in July 2015. Hypertension. COPD, on home oxygen 2 to 3 L. PAST SURGICAL HISTORY: Repair of a broken arm. ALLERGIES: STEROIDS and BEE STINGS. FAMILY HISTORY: Significant for father with COPD and cancer in both his mother and father. SOCIAL HISTORY: The patient is a former [id number] smoker, quit in 2015. He states he drinks 2 to 3 beers up to 2 to 3 times a week. Denies any illicit drug use. Medications Active Medications: Acetaminophen (Tylenol Tab*) 650 mg PO Q4H PRN PRN Reason: PAIN Albuterol (Ventolin Hfa Inhaler*) 1 puff INH Q4H PRN PRN Reason: SOB/WHEEZING Last Admin: 02/27/17 07:16 Dose: 1 puff Albuterol (Ventolin 2.5 Mg/3 Ml Neb.Santy*) 2.5 mg INH Q4H PRN PRN Reason: SOB/WHEEZING Aspirin (Aspirin Low Dose Tab*) 81 mg PO DAILY [facility] Last Admin: 02/27/17 09:17 Dose: 81 mg Atorvastatin Calcium (Lipitor*) 80 mg PO DAILY [facility] Last Admin: 02/27/17 09:17 Dose: 80 mg Budesonide (Pulmicort Neb*) 0.5 mg INH RT.BID [facility] Last Admin: 02/27/17 07:17 Dose: 0.5 mg Furosemide (Lasix Iv*) 20 mg IV DAILY [facility] Last Admin: 02/27/17 09:17 Dose: 20 mg Ipratropium [place] (Atrovent 0.5 Mg Neb.Santy*) 0.5 mg INH BID PRN PRN Reason: SHORTNESS OF BREATH Last Admin: 02/25/17 21:16 Dose: 0.5 mg Metoprolol Succinate (Toprol Xl Tab*) 50 mg PO DAILY [facility] Last Admin: 02/27/17 09:17 Dose: 50 mg Nitroglycerin (Nitroglycerin Tab 0.4 Mg*) 0.4 mg SL Q5M PRN PRN Reason: ANGINA Last Admin: 02/26/17 08:19 Dose: 0.4 mg Ondansetron HCl (Zofran Inj*) 4 mg IV Q6H PRN PRN Reason: NAUSEA Last Admin: 02/26/17 14:10 Dose: 4 mg Simethicone (Mylicon*) 80 mg PO Q6H PRN PRN Reason: Cramping Last Admin: 02/27/17 09:17 Dose: 80 mg Home Medications: Albuterol/Ipratropium RESP(NF) [Combivent Respimat (NF)] 1 puff INH Q4HR [History Confirmed 02/24/17] Atorvastatin* [Lipitor 80 MG*] 80 mg PO DAILY 08/19/16 [History Confirmed ] Budesonide NEB* [Pulmicort Neb*] 0.5 mg INH BID 08/19/16 [History Confirmed ] Ipratropium 0.5MG/2.5ML NEB* [Atrovent 0.5 MG NEB.SANTY*] 0.5 mg INH BID PRN 08/19 [History Confirmed 02/24/17] Metoprolol Succinate XL TAB* [Toprol XL TAB*] 50 mg PO DAILY 08/19/16 [History Confirmed 02/24/17] Ticagrelor [Brilinta 60 MG TAB] 60 mg PO BID 08/19/16 [History Confirmed ] Aspirin 81 MG TAB 81 mg PO DAILY 02/24/17 [History Confirmed 02/24/17] Combivent Respimat (NF) 2 puff INH DAILY 02/24/17 [History Confirmed 02/24/17] Furosemide TAB* [Lasix TAB*] 1 tab PO DAILY 02/24/17 [History Confirmed 02/24/17 ] Perforomist NEB.SOLN*(NF) 20 mcg INH DAILY 02/24/17 [History Confirmed 02/24/17] Testosterone Cypionate 1 ml IM SEE INSTRUCTIONS 02/24/17 [History Confirmed ] Review of Systems - Measurements Intake and Output: Intake and Output Last 24 Hours 02/25/17 02/26/17 02/27/17 02/28/17 06:59 06:59 06:59 06:59 Intake Total 620 810 Output Total 615 2175 Balance 5 -1365 Weight 203 lb 1.6 oz Intake: Oral 620 810 Output: Urine 615 2175 Other: Estimated Void Medium Date of Last Bowel 02/26/17 Movement # Bowel Movements 0 0 Estimated Stool Amount Large # Voids 1 - Review of Systems Constitutional Symptoms: Negative: Weight Gain, Weight Loss, Weakness, Fatigue, Fever, Night Sweats, Unexplained Falls, Other HEENT: Negative: Normal, Change in Hearing, Vertigo Eyes: Negative: Change in Vision, Double Vision Thyroid: Negative: Constipation, Primary Hypothyroidism, Primary Hyperthyroidism, Weight Loss Pulmonary: Positive: Shortness of Breath, COPD, Exercise Intolerance, Home Oxygen Negative: Cough, Sputum, Hemoptysis, Wheezing, Asthma Cardiology: Positive: Chest Pain, Shortness of Breath, Swelling of Ankles, Edema Gastroenterology: Positive: Abdominal Pain, Blood in Stools, Change in Bowel Habits Genital - Urinary: Negative: Dysuria, Hematuria, Polyuria Musculoskeletal: Negative: Joint Pain, Joint Stiffness, Arthritis, Osteoporosis Endocrinology: Positive: Obesity Negative: Thyroid Problems, Calluses, Polydipsia, Polyuria, Gynecomastia Hematologic/Lymphatic: Positive: Anemia, Use of Antiplatelet Drugs Negative: Easy Brusing, Hx Leukemia, Hx Lymphoma, Use of Anticoagulant, Other Neurology: Negative: Headaches, Migraines, Change in Vision, Diplopia, Dizziness, Change in Balancing, Change in Coordination, Change in Memory, Numbness\ Paresthesiae, Unexplained Weakness, Hx Seizures Psychiatry: Positive: Sexual Dysfunction Negative: Tearfulness, Unusual Fatigue Allergic/Immunologic: Negative: Hx HIV, Immunocompromise Review of Systems Statement: All other review of systems negative, unless stated above. Objective Vital Signs: Temp Pulse Resp BP Pulse Ox 99.0 F 65 18 106/47 99 02/27/17 08:01 02/27/17 08:01 02/27/17 08:01 02/27/17 08:01 02/27/17 08:01 Oxygen Devices in Use Now: Nasal Cannula Appearance: pleasant, nad Ears/Nose/Mouth/Throat: Clear Oropharnyx, Mucous Membranes Moist Neck: Trachea Midline, - - uncertain jvp Respiratory: Symmetrical Chest Expansion and Respiratory Effort, - - crackles bases Cardiovascular: RRR, - - no murmur, 1+ pitting edema b/l Abdominal: NL Sounds; No Tenderness; No Distention Extremities: No Clubbing, Cyanosis Skin: No Rash or Ulcers Neurological: Alert and Oriented x 3 Laboratory Results: 02/27/17 06:16 02/27/17 06:16 INR (Anticoag Therapy) 0.97 (0.89-1.11) 02/24/17 09:13 Total Bilirubin 0.40 mg/dL (0.2-1.0) 02/24/17 02:20 AST 36 U/L (13-39) 02/24/17 02:20 ALT 42 U/L (7-52) 02/24/17 02:20 Alkaline Phosphatase 71 U/L (34-104) 02/24/17 02:20 Total Protein 6.9 g/dL (6.4-8.9) 02/24/17 02:20 Albumin 3.9 g/dL (3.2-5.2) 02/24/17 02:20 Globulin 3.0 g/dL (2-4) 02/24/17 02:20 Albumin/Globulin Ratio 1.3 (1-3) 02/24/17 02:20 02/26/17 02/26/17 02/26/17 08:04 11:04 14:09 Troponin I 0.01 0.01 0.01 Diagnostic Imaging: TTE 07/2015 Mild LVH, normal LVEF 55-60%, normal LA size, normal RV size and function, moderate to severe pulmonary HTN Angiogram 07/2015: LVEF 55% with basal inferior wall hypokinesis, LVEDP 28 mmHg EKG Data: EKG 02/24/2017: NSR, no ischemic changes ekg 02/26/2017: NSR, artifact but no obvious ischemic changes Assessment/Plan Mr. Davalos is a 61-year-old male with past medical history of hypertension; CAD s /p CO 07/2015 s/p PCI/ALYSHA to single vessel non-dominant occluded proximal left circumflex, prior tobacco use quit 08/2016, severe copd on home oxygen, chronic atypical left sided focal chest pain (? related to pulmonary hypertension), pulmonary HTN, volume overload admitted with LGIB in setting of prolonged DAPT use, no evidence of active myocardial ischemia. - Continue aspirin 81 mg PO daily - Discontinue brillinta, has been at least a year since PCI - Continue intensive dose statin - Continue beta-jessika - Continue diuretics Thank you for allowing me to participate in the cardiovascular care of this patient. Please do not hesitate to contact me with questions or concerns.
--- NOTE | 2017-02-27 18:23 | PN ---
Subjective Date of Service: 02/27/17 Interval History: HOSPITALIST PROGRESS NOTE Patient seen and examined at bedside. He feels a little better today. No further episodes of blood in the stool. Still dyspneic, but less than yesterday. Family History: Unchanged from Admission Social History: Unchanged from Admission Past Medical History: Unchanged from Admission Objective Active Medications: Acetaminophen (Tylenol Tab*) 650 mg PO Q4H PRN PRN Reason: PAIN Albuterol (Ventolin Hfa Inhaler*) 1 puff INH Q4H PRN PRN Reason: SOB/WHEEZING Last Admin: 02/27/17 16:42 Dose: 1 puff Albuterol (Ventolin 2.5 Mg/3 Ml Neb.Cyn*) 2.5 mg INH Q4H PRN PRN Reason: SOB/WHEEZING Aspirin (Aspirin Low Dose Tab*) 81 mg PO DAILY [facility] Last Admin: 02/27/17 09:17 Dose: 81 mg Atorvastatin Calcium (Lipitor*) 80 mg PO DAILY [facility] Last Admin: 02/27/17 09:17 Dose: 80 mg Budesonide (Pulmicort Neb*) 0.5 mg INH RT.BID [facility] Last Admin: 02/27/17 07:17 Dose: 0.5 mg Furosemide (Lasix Iv*) 20 mg IV DAILY [facility] Last Admin: 02/27/17 09:17 Dose: 20 mg Ipratropium [place] (Atrovent 0.5 Mg Neb.Cyn*) 0.5 mg INH BID PRN PRN Reason: SHORTNESS OF BREATH Last Admin: 02/25/17 21:16 Dose: 0.5 mg Metoprolol Succinate (Toprol Xl Tab*) 50 mg PO DAILY [facility] Last Admin: 02/27/17 09:17 Dose: 50 mg Nitroglycerin (Nitroglycerin Tab 0.4 Mg*) 0.4 mg SL Q5M PRN PRN Reason: ANGINA Last Admin: 02/26/17 08:19 Dose: 0.4 mg Ondansetron HCl (Zofran Inj*) 4 mg IV Q6H PRN PRN Reason: NAUSEA Last Admin: 02/26/17 14:10 Dose: 4 mg Simethicone (Mylicon*) 80 mg PO Q6H PRN PRN Reason: Cramping Last Admin: 02/27/17 09:17 Dose: 80 mg Vital Signs 02/27/17 15:14 Temperature 97.2 F Pulse Rate 67 Respiratory 22 Rate Blood Pressure 117/56 (mmHg) O2 Sat by Pulse 95 Oximetry Oxygen Devices in Use Now: Nasal Cannula Appearance: Pleasant gentleman lying in a recliner in NAD. Eyes: No Scleral Icterus Ears/Nose/Mouth/Throat: Mucous Membranes Moist Neck: Trachea Midline Respiratory: Symmetrical Chest Expansion and Respiratory Effort, - - BS+ bilaterally with scattered wheeze Cardiovascular: RRR - Normal S1 and S2 Abdominal: NL Sounds; No Tenderness; No Distention Extremities: - - Mild to moderate bilateral LE edema Neurological: Alert and Oriented x 3, NL Muscle Strength and Tone Lines/Tubes/Other Access: Clean, Dry and Intact Peripheral IV Nutrition: Taking PO's Result Diagrams: 02/27/17 06:16 02/27/17 06:16 Assess/Plan/Problems-Billing Assessment: Mr. Davalos is a 61yo F with PMH of CAD s/p stent, HTN, COPD on home O2, who presented to ED with painless hematochezia. - Patient Problems (1) Hematochezia Comment: - GI input appreciated - source is likely diverticular bleed. (2) Acute blood loss anemia Comment: - Last Hb 9.8. - No further episodes of hematochezia. (3) Coronary artery disease Comment: - Had some chest pain earlier today, but with no EKG changes and negative serial troponins. - Continue ASA, Atorvastin, and Metoprolol. - Cardiology input appreciated - agreed with discontinuation of Brilinta. (4) COPD (chronic obstructive pulmonary disease) Comment: - Stable. - Continue bronchodilators and supplemental O2. (5) Diastolic CHF Comment: - Showing signs of fluid overload. - Continue gentle diuresis. (6) DVT prophylaxis Comment: - SCDs. (7) Full code status Status and Disposition: Inpatient.
[2017-02-27] MEDS ORDERED: LORazepam TAB(*) 0.5 MG PO PRN (19:07)
[2017-02-27] MEDS ORDERED: Senna TAB PO PRN (19:24)
[2017-02-27] MEDS ORDERED: Docusate CAP* 100 MG PO PRN (19:24)
[2017-02-28] MEDS: Budesonide NEB* 0.5 MG/2 ML NEB.SOLN INH SCH ×2 (07:03→20:03)
[2017-02-28] MEDS: Albuterol HFA INHALER* 8 gm MDI INH PRN ×2 (07:04→20:52)
[2017-02-28] MEDS: Metoprolol Succinate XL TAB* 50 MG PO SCH (10:22)
[2017-02-28] MEDS: Atorvastatin* 80 MG TAB PO SCH (10:22)
[2017-02-28] MEDS: Aspirin Low Dose CHEW TAB* 81 MG PO SCH (10:22)
[2017-02-28] MEDS: Furosemide IV* 10 MG/ML 10 ML VIAL (100 MG) IV SCH (10:23)
--- NOTE | 2017-02-28 17:02 | PN ---
Subjective Date of Service: 02/28/17 Interval History: HOSPITALIST PROGRESS NOTE Patient seen and examined at bedside. "My breathing is crappy". When asked how far from his baseline he is at this time, he answers "not far". No further episodes of hematochezia. Family History: Unchanged from Admission Social History: Unchanged from Admission Past Medical History: Unchanged from Admission Objective Active Medications: Acetaminophen (Tylenol Tab*) 650 mg PO Q4H PRN PRN Reason: PAIN Albuterol (Ventolin Hfa Inhaler*) 1 puff INH Q4H PRN PRN Reason: SOB/WHEEZING Last Admin: 02/28/17 07:04 Dose: 1 puff Albuterol (Ventolin 2.5 Mg/3 Ml Neb.Cyn*) 2.5 mg INH Q4H PRN PRN Reason: SOB/WHEEZING Aspirin (Aspirin Low Dose Tab*) 81 mg PO DAILY [facility] Last Admin: 02/28/17 10:22 Dose: 81 mg Atorvastatin Calcium (Lipitor*) 80 mg PO DAILY [facility] Last Admin: 02/28/17 10:22 Dose: 80 mg Budesonide (Pulmicort Neb*) 0.5 mg INH RT.BID [facility] Last Admin: 02/28/17 07:03 Dose: 0.5 mg Docusate Sodium (Colace Cap*) 100 mg PO BID PRN PRN Reason: CONSTIPATION Last Admin: 02/27/17 19:47 Dose: 100 mg Furosemide (Lasix Iv*) 40 mg IV DAILY [facility] Last Admin: 02/28/17 10:23 Dose: 40 mg Ipratropium [place] (Atrovent 0.5 Mg Neb.Cyn*) 0.5 mg INH BID PRN PRN Reason: SHORTNESS OF BREATH Last Admin: 02/25/17 21:16 Dose: 0.5 mg Lorazepam (Ativan Tab(*)) 0.5 mg PO BID PRN PRN Reason: Severe Anxiety Last Admin: 02/27/17 19:45 Dose: 0.5 mg Metoprolol Succinate (Toprol Xl Tab*) 50 mg PO DAILY [facility] Last Admin: 02/28/17 10:22 Dose: 50 mg Nitroglycerin (Nitroglycerin Tab 0.4 Mg*) 0.4 mg SL Q5M PRN PRN Reason: ANGINA Last Admin: 02/26/17 08:19 Dose: 0.4 mg Ondansetron HCl (Zofran Inj*) 4 mg IV Q6H PRN PRN Reason: NAUSEA Last Admin: 02/26/17 14:10 Dose: 4 mg Senna (Senokot Tab*) 2 tab PO BEDTIME PRN PRN Reason: CONSTIPATION Last Admin: 02/27/17 19:46 Dose: 2 tab Simethicone (Mylicon*) 80 mg PO Q6H PRN PRN Reason: Cramping Last Admin: 02/27/17 09:17 Dose: 80 mg Vital Signs 02/28/17 02/28/17 07:30 08:00 Temperature 97.8 F Pulse Rate 64 Respiratory 24 20 Rate Blood Pressure 101/48 (mmHg) O2 Sat by Pulse 97 Oximetry Oxygen Devices in Use Now: Nasal Cannula Appearance: Pleasant gentleman sitting up in a recliner in NAD. Eyes: No Scleral Icterus Ears/Nose/Mouth/Throat: Mucous Membranes Moist Neck: Trachea Midline Respiratory: Symmetrical Chest Expansion and Respiratory Effort, - - BS+ bilaterally decreased, with no added sounds Cardiovascular: RRR - Normal S1 and S2 Abdominal: NL Sounds; No Tenderness; No Distention Extremities: - - Mild bilateral LE edema Neurological: Alert and Oriented x 3, NL Muscle Strength and Tone Lines/Tubes/Other Access: Clean, Dry and Intact Peripheral IV Nutrition: Taking PO's Result Diagrams: 02/27/17 06:16 02/27/17 06:16 Assess/Plan/Problems-Billing Assessment: Mr. Davalos is a 61yo F with PMH of CAD s/p stent, HTN, COPD on home O2, who presented to ED with painless hematochezia. - Patient Problems (1) Hematochezia Comment: - GI input appreciated - source is likely diverticular bleed. (2) Acute blood loss anemia Comment: - Hb remains stable. - No further episodes of hematochezia. (3) Coronary artery disease Comment: - Stable. - Continue ASA, Atorvastin, and Metoprolol. - Cardiology input appreciated - agreed with discontinuation of Brilinta. (4) COPD (chronic obstructive pulmonary disease) Comment: - Stable. - Continue bronchodilators and supplemental O2. (5) Diastolic CHF Comment: - Continue gentle diuresis. (6) DVT prophylaxis Comment: - SCDs. (7) Full code status Status and Disposition: Inpatient. Anticipate d/c in AM.
[2017-02-28] MEDS: Simethicone CHEW TAB* 80 MG PO PRN (20:48)
[2017-03-01] MEDS: Budesonide NEB* 0.5 MG/2 ML NEB.SOLN INH SCH (07:44)
[2017-03-01] MEDS: Albuterol HFA INHALER* 8 gm MDI INH PRN (07:50)
[2017-03-01] MEDS: Atorvastatin* 80 MG TAB PO SCH (09:35)
[2017-03-01] MEDS: Aspirin Low Dose CHEW TAB* 81 MG PO SCH (09:35)
[2017-03-01 09:36] VITALS: BP 105/51
[2017-03-01] MEDS: Furosemide IV* 10 MG/ML 10 ML VIAL (100 MG) IV SCH (09:36)
[2017-03-01] MEDS: Metoprolol Succinate XL TAB* 50 MG PO SCH (09:36)
--- NOTE | 2017-03-02 08:04 | DS ---
DISCHARGE SUMMARY: DATE OF ADMISSION: 02/24/17 DATE OF DISCHARGE: 03/01/17 PRIMARY CARE PROVIDER: Dr. Dodson. CONSULTING CONTACT MANAGER: Dr. Morrow. DISCHARGE DIAGNOSES: 1. Painless hematochezia, likely secondary to diverticular bleed. 2. Acute diastolic congestive heart failure exacerbation. 3. Acute blood loss anemia. SECONDARY DIAGNOSES: 1. Coronary artery disease, status post myocardial infarction with stent placement in July 2015. 2. Hypertension. 3. Advanced chronic obstructive pulmonary disease, on home oxygen 2 to 3 L. 4. Diastolic congestive heart failure. MEDICATION LIST: 1. Albuterol/ipratropium 1 puff inhaled q.4 hours. 2. Aspirin 81 mg p.o. daily. 3. Atorvastatin 80 mg p.o. daily. 4. Budesonide 0.5 mg inhaled b.i.d. 5. Combivent Respimat 2 puffs inhaled daily. 6. Furosemide 20 mg p.o. daily. 7. Ipratropium 0.5 mg nebulized b.i.d. as needed for shortness of breath. 8. Metoprolol succinate 50 mg p.o. daily. 9. Nitroglycerin 0.4 mg sublingual q.4 minutes p.r.n. chest pain. 10. Perforomist 20 mcg inhaled daily. HOSPITAL COURSE: Mr. Davalos is a 61-year-old male with a past medical history as stated above that presented to the emergency room with complaints of abdominal discomfort and blood in the stool. For more details about his presentation, I refer you to his history and physical. He was admitted under the impression of bloody diarrhea for further evaluation. CT of the abdomen and pelvis shows fatty liver, atherosclerosis, and subcentimeter short axis mesenteric lymph nodes without lymphadenopathy by size criteria. 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 The patient was seen in consultation by Gastroenterology (Dr. Plunkett) and his impression was that the patient presented with hematochezia with some mild cramping before a bowel movement, but no significant abdominal pain. He felt that differential included diverticula causes less likely ischemic colitis or malignancy and his recommendation was to prep him for a colonoscopy. The patient did not finish his colonoscopy prep. He had it done by Dr. Morrow and he had a complete colonoscopy into the cecum, but poor quality of preparation. He had mild diverticulosis and small internal hemorrhoids. Although no obvious etiology was seen for his rectal bleeding, Dr. Morrow felt that this was likely diverticular in nature. The patient's hemoglobin dropped from 12.9 on admission to 9.9 and he remained stable around 9.5. He did receive IV hydration but did not require blood transfusions. The patient has a history of coronary artery disease with stents placed in 2014. He has been on aspirin and Brilinta since then. His Brilinta was held on admission and a cardiology consultation was requested with Dr. Byrne to clarify his Brilinta was still necessary since it had been more than 1 year since the patient had his stent placed. Dr. Byrne's impression was that Mr. Davalos is a 61-year-old male with a past medical history of hypertension, CAD, status post IN in July 2015, status post PCI drug-eluting stent showed single-vessel nondominant occluded proximal left circumflex, prior history of tobacco abuse, severe COPD on home oxygen, pulmonary hypertension, who presented to the hospital with a lower GI bleed in the setting of prolonged dual -antiplatelet therapy with no evidence of active myocardial ischemia. His recommendation was to continue aspirin and discontinue Brilinta as it had been at least a year since his PCI. He also recommended continue statins and beta- jessika. The patient had signs of fluid overload and he responded well to diuretics. Although the patient has shortness of breath, he states that he is very close to his baseline and he was felt to be stable to be discharged home today. His lower extremity edema is significantly improved but the patient will need close followup as outpatient. He is medically stable for discharge today. PHYSICAL EXAMINATION: Vital Signs: Temperature 97.9, heart rate is 71, respiratory rate is 18, oxygen saturation 96% on 3 L nasal cannula, blood pressure is 105/51. General: The patient is a pleasant gentleman sitting up in a recliner in no acute distress. CVS: Normal S1 and S2. Regular rate and rhythm. Chest: Breath sounds are bilaterally decreased with no added sounds. Abdomen is obese, soft. Bowel sounds are present. Extremities: Mild bilateral lower extremity edema. Neuro: He is alert, awake, oriented x3. Able to move all 4 extremities. DIET: Heart-healthy diet. ACTIVITIES: As tolerated. DISPOSITION: To home. STATUS WHILE IN THE HOSPITAL: Inpatient. Please keep in mind this is a summarized version of this patient's hospital stay. If you need more information, please feel free to call me at [phone] or please obtain the full medical records. TIME SPENT: Approximately 45 minutes were spent to complete this discharge. CC: Dr. Dodson; Dr. Morrow * [id number]/CPS #: [id number] MTDD
== END 2017-03-01 11:42 | disposition home or self-care (01) | DRG 377 ==
LOC: ED 02:11 → MEDTELE 07:47 → OBSVTOIN 02-25 16:29
PROVIDERS: ADMIT Hospitalist; ATTEND Internal Medicine
PROC: 0DJD8ZZ Inspection of Lower Intestinal Tract, Via Natural or Artificial Opening Endoscopic (ICD-10-PCS; principal; 2017-02-25)
DX: K57.31 Diverticulosis of large intestine without perforation or abscess with bleeding (principal); I50.31 Acute diastolic (congestive) heart failure; Z99.81 Dependence on supplemental oxygen; I27.2 Other secondary pulmonary hypertension; D62 Acute posthemorrhagic anemia; I11.0 Hypertensive heart disease with heart failure; I25.10 Atherosclerotic heart disease of native coronary artery without angina pectoris; Z95.5 Presence of coronary angioplasty implant and graft; J44.9 Chronic obstructive pulmonary disease, unspecified; I25.2 Old myocardial infarction; K64.8 Other hemorrhoids; Z79.82 Long term (current) use of aspirin; Z79.01 Long term (current) use of anticoagulants; Z88.8 Allergy status to other drugs, medicaments and biological substances; Z91.030 Bee allergy status; Z80.9 Family history of malignant neoplasm, unspecified; Z82.5 Family history of asthma and other chronic lower respiratory diseases; Z87.891 Personal history of nicotine dependence
CPT/HCPCS: 36415; 74177; 80048; 80053; 81003; 82272; 83605; 83630; 83690; 84484; 85014; 85018; 85025; 85610; 86140; 87045; 87046; 87077; 87493; 87899; 93005; 94640; 94760; A9270-GY; G0378; J1940; J2250; J2405; J7644; Q9967

== ENCOUNTER 2019-09-24 12:38 | Emergency (ER) | payer MEDICARE, MEDICAID ==
--- NOTE | 2019-09-24 13:01 | ED ---
Shortness of Breath - HPI Summary HPI Summary: 63 year old male presents to the ED with a chief complaint of shortness of breath starting yesterday. Patient reports congestion and believes he may have some tissue stuck in his nostril. He feels anxious due to his difficulty breathing, and as a result he was unable to sleep last night. Patient has a history of COPD. He is on 3L O2 NC at home. Patient formerly smoked tobacco. - History of Current Complaint Chief Complaint: EDUpperRespComplaint Time Seen by Provider: 09/24/19 12:49 Hx Obtained From: Patient Onset/Duration: Lasting Hours, Still Present, Worse Since - yesterday Current Severity: Moderate Dyspnea At: Rest Alleviating Factors: Oxygen - 3L NC Associated Signs & Symptoms: Nasal Congestion - Allergy/Home Medications Allergies/Adverse Reactions: Allergies Allergy/AdvReac Type Severity Reaction Status Date / Time bee venom protein (honey bee) Allergy Unknown Verified 09/24/19 12:43 Reaction Details Corticosteroids Allergy Hives Verified 09/24/19 12:43 (Glucocorticoids) prednisolone Allergy Hives Verified 09/24/19 12:43 rosuvastatin [From Crestor] Allergy Hives Verified 09/24/19 12:43 PMH/Surg Hx/FS Hx/Imm Hx Endocrine/Hematology History: Denies: Hx Diabetes, Hx Thyroid Disease Cardiovascular History: Reports: Hx Coronary Artery Disease, Hx Hypertension, Hx Myocardial Infarction Denies: Hx Cardiac Arrest, Hx Congestive Heart Failure, Hx Hypotension, Hx Syncope Respiratory History: Reports: Hx Asthma, Hx Chronic Obstructive Pulmonary Disease (COPD) - 2-3L of O2 at baseline, Hx Pneumonia, Hx Pulmonary Embolism, Other Respiratory Problems/Disorders - PN Denies: Hx Lung Cancer History: Denies: Hx Renal Disease Musculoskeletal History: Denies: Hx Arthritis, Hx Osteoporosis Sensory History: Reports: Hx Contacts or Glasses Denies: Hx Hearing Aid Opthamlomology History: Reports: Hx Contacts or Glasses Neurological History: Denies: Hx Headaches, Hx Seizures - Surgical History Surgery Procedure, Year, and Place: LEFT THUMB Hx Anesthesia Reactions: No - Immunization History Date of Tetanus Vaccine: 2013 Date of Influenza Vaccine: 2013 Infectious Disease History: No Infectious Disease History: Denies: Traveled Outside the [place] in Last 30 Days - Family History Known Family History: Positive: Respiratory Disease - COPD, Other - Both parents -- [place] - Social History Alcohol Use: Weekly Alcohol Amount: 1-2 times per week Hx Substance Use: Yes Substance Use Type: Reports: None Substance Use Comment - Amount & Last Used: smokes marijuana once/twice a month Hx Tobacco Use: Yes Smoking Status (MU): Former Smoker Amount Used/How Often: chain smoker- "if i'm awake, i'm smoking" Have You Smoked in the Last Year: Yes Review of Systems Negative: Fever Positive: Other - Congestion Positive: Shortness Of Breath Positive: Anxious All Other Systems Reviewed And Are Negative: Yes Physical Exam - Summary Physical Exam Summary: Appearance: The patient is well-nourished in no acute distress and in no acute pain. Skin: The skin is warm and dry, and skin color reflects adequate perfusion. HEENT: The head is normocephalic and atraumatic. The pupils are equal and reactive. The conjunctivae are clear and without drainage. Nares are patent and without drainage. Mouth reveals moist mucous membranes, and the throat is without erythema and exudate. The external ears are intact. The ear canals are patent and without drainage. The tympanic membranes are intact. Neck: The neck is supple with full range of motion and non-tender. There are no carotid bruits. There is no neck vein distension. Respiratory: Chest is non-tender. Lungs are clear to auscultation and breath sounds are symmetrical and equal. Cardiovascular: Heart is regular rate and rhythm. There is no murmur or rub auscultated. There is no peripheral edema and pulses are symmetrical and equal. Abdomen: The abdomen is soft and non-tender. There are normal bowel sounds heard in all four quadrants and there is no organomegaly palpated. Musculoskeletal: There is no back tenderness noted. Extremities are non-tender with full range of motion. There is good capillary refill. There is no peripheral edema or calf tenderness elicited. Neurological: Patient is alert and oriented to person, place and time. The patient has symmetrical motor strength in all four extremities. Cranial nerves are grossly intact. Deep tendon reflexes are symmetrical and equal in all four extremities. Psychiatric: The patient has an appropriate affect and does not exhibit any anxiety or depression. Triage Information Reviewed: Yes Vital Signs On Initial Exam: Initial Vitals Temp Pulse Resp BP Pulse Ox 97.9 F 70 24 162/117 93 09/24/19 12:39 09/24/19 12:39 09/24/19 12:39 09/24/19 12:39 09/24/19 12:39 Vital Signs Reviewed: Yes Procedures - Sedation Patient Received Moderate/Deep Sedation with Procedure: No Diagnostics - Vital Signs Vital Signs Temp Pulse Resp BP Pulse Ox 09/24/19 12:39 97.9 F 70 24 162/117 93 - Laboratory Lab Statement: Any lab studies that have been ordered have been reviewed, and results considered in the medical decision making process. - CT Sinuses CT CT Interpretation Completed By: Radiologist Summary of CT Findings: IMPRESSION: 1. No CT evidence of paranasal sinus mucosal disease. 2. Incidentally noted is cerumen nearly impacting the right external auditory canal. An ED physician has reviewed this report. Course/Dx - Course Course Of Treatment: I cannot see anything in his nasal passage using the otoscope. CT showed only some mild septal deviation towards the right. Patient 's vitals were good and his oxygenation was fine but he was very anxious about this sensation. He was given Ativan here and that helped a lot. I think the best thing would be if he were to see ENT to consider a fiber-optic look and I am going to give him some Ativan to help him cope with his symptoms told that time. I don't believe he is in any danger at this time. - Diagnoses Provider Diagnoses: Congestion of nasal sinus Discharge ED - Sign-Out/Discharge Documenting (check all that apply): Patient Departure - Discharge - Discharge Plan Condition: Stable Disposition: HOME Prescriptions: LORazepam TAB(*) [Ativan TAB(*)] 1 mg PO Q6H PRN #20 tab MDD 4 PRN Reason: Pain Patient Education Materials: Sinusitis (ED) Referrals: Jose Lius Still MD [Medical Doctor] - Additional Instructions: Follow up with HENT in 2-3 days. Return to the ED if you experience new or worsened symptoms. - Billing Disposition and Condition Condition: STABLE Disposition: Home - Attestation Statements Document Initiated by Vipin: Yes Documenting Scribe: Riki Sue Provider For Whom Vipin is Documenting (Include Credential): Cliff Patel MD. Scribe Attestation: Riki Rendon scribed for Cliff Patel MD. on 09/24/19 at 2008. Scribe Documentation Reviewed: Yes Provider Attestation: The documentation as recorded by the scribe, Riki Sue accurately reflects the service I personally performed and the decisions made by me, Cliff Patel MD. Status of Scribe Document: Viewed
--- OUTSIDE RECORDS SUMMARY | 2019-09-24 13:06 | XMS REPORT | Continuity of Care Document ---
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 Active Problems Provider Date Old myocardial infarction Ladonna Langley MD, [facility], Onset: 08/07/2015 [facility] Chronic obstructive lung disease Ladonna Langley MD, [facility], Onset: 2014 [facility] Disturbance in sleep behavior Ruby Benitez MD Onset: 02/17/2016 Obesity Ruby Benitez MD Onset: 02/17/2016 Emphysema, unspecified Ruby Benitez MD Onset: 02/17/2016 Encounter for screening for Ruby Benitez MD Onset: 02/17/2016 malignant neoplasm of respiratory organs Obstructive sleep apnea syndrome Ruby Benitez MD Onset: 04/14/2016 Hypoxemia Ruby Benitez MD Onset: 04/14/2016 Disorder of lung Ruby Benitez MD Onset: 07/28/2016 Tobacco user Ruby Benitez MD Onset: 07/28/2016 Chronic respiratory failure Ruby Benitez MD Onset: 12/08/2016 Social History Type Date Description Comments Sex Unknown Tobacco Use Start: Unknown Former Cigarette Smoker End: Unknown ETOH Use Has consumed alcohol in discontinue 01/2018 the past Tobacco Use Start: Unknown Patient is a former End: Unknown smoker Recreational Drug Use Denies Drug Use Tobacco Use Start: Unknown Former Smoker, Quit in August of 2016 Smoking Status Reviewed: 09/01/19 Former Smoker, Quit in August of 2016 Exercise Type/Frequency Exercises sporadically patient walks down the hallway Allergies, Adverse Reactions, Alerts Active Allergies Reaction Severity Comments Date Corticosteroids 06/07/2015 Bee Sting 06/07/2015 Crestor Hives 11/12/2015 Prednisone 02/11/2017 Medications Active Medications SIG Qnty Indications Ordering Date Provider Nebulizer 1 unit nebulization 1units J44.9 Rubydilip Hendricksali, 02/27/2019 Kit/Tubing/Mouthpiece every 4- 6 hours as MD needed Kit Nebulizer System 1 unit q4 hours and 1units J44.9 Ruby Benitez, 2018 [facility] as needed MD Ghosh Walker pls provide pt with Ruby Benitez, 07/27/2018 [facility] 4 legged walker with seat Furosemide take one tablet by 30tabs I27.2 Ladonna Jack 02/03/2017 20mg Tablets mouth every morning MD Korin, KIKA, FSCAI Oxygen please use o2 at 2 1units J43.9 Ruby Benitez, 02/17/2016 Misc l/min during MD exertion 11/23/18 pt using 2.5 l-3l nc Aspir-Low daily Ladonna Jack 08/07/2015 81mg Tablets MD Korin, DR ANAND, [place] Nitrostat one sl q5min up to 30tabs Mallika Abraham, 08/02/2015 0.4mg Tablets 3 doses as needed N.P. Sub for chest discomfort. call 911 if pain not resolved after 3 ntg. Combivent Respimat 1 puff puff four Unknown 06/06/2015 times a day 20-100mcg/Act Aerosol Atorvastatin Calcium 1 by mouth every Unknown day 80mg Tablets Triamcinolone apply thin film Unknown Acetonide twice daily as 0.1% Cream needed apply to coccyx region Metformin HCL 1 by mouth daily Unknown 500mg Tablets Symbicort 2 puff twice a day Unknown 160-4.5mcg/Act Aerosol Metoprolol Succinate 1 by mouth every Unknown ER day 25mg Tablets ER 24HR Ketoconazole apply to affected Unknown 2% Cream area twice a day for one week,then use as necessary Epipen 2-Mendoza use as directed Unknown 0.3mg/0.3ML Solution Auto-Inject Immunizations Description No Information Available Vital Signs Date Vital Result Comment 09/01/2019 11:12am Height 63 inches 5'3" Weight 193.25 lb Heart Rate 58 /min BP Systolic Sitting 132 mmHg Rue reg cuff BP Diastolic Sitting 74 mmHg Rue reg cuff O2 % BldC Oximetry 95 % On 2L O2 via office tank, [place] BMI (Body Mass Index) 34.2 kg/m2 04/07/2019 11:15am Height 63 inches 5'3" Weight 191.00 lb with shoes BP Systolic Sitting 154 mmHg lue reg cuff BP Diastolic Sitting 68 mmHg lue reg cuff BP Systolic Standing 158 mmHg lue reg cuff BP Diastolic Standing 70 mmHg lue reg cuff Respiratory Rate 16 /min BMI (Body Mass Index) 33.8 kg/m2 Ejection Fraction 60-65% Results Description No Information Available Procedures Date Code Description Status 04/07/2019 95501 EKG Tracing & Interpretation Completed Medical Devices Description No Information Available Encounters Type Date Location Provider Dx Diagnosis Office Visit 04/07/2019 [facility] Sebastian Byrne, I25.2 Old myocardial 11:20a Of [employer] 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 DO FACC infarction J44.9 Chronic obstructive pulmonary disease, unspecified I27.23 Pulmonary hypertension due to lung diseases and hypoxia R60.0 Localized edema E78.5 Hyperlipidemia, unspecified E66.8 Other obesity Office Visit 03/30/2019 2:45p Pulmonology And Ruby J44.9 [facility] Eli obstructive Ship Design Teacher pulmonary disease, unspecified R09.02 Hypoxemia Assessments Date Code Description Provider 09/01/2019 J44.9 Chronic obstructive pulmonary disease, Doris Acharya NP unspecified 09/01/2019 R09.02 Hypoxemia Doris Acharya NP 09/01/2019 R91.8 Other nonspecific abnormal finding of lung Doris Acharya NP field 04/07/2019 I25.2 Old myocardial infarction Sebastian Byrne, DO [facility]ACC 04/07/2019 J44.9 Chronic obstructive pulmonary disease, Sebastian Byrne, DO FACC unspecified 04/07/2019 I27.23 Pulmonary hypertension due to lung Sebastian Byrne, DO [facility]ACC diseases and hypoxia 04/07/2019 R60.0 Localized edema Sebastian Byrne, DO [facility] 04/07/2019 E78.5 Hyperlipidemia, unspecified Sebastian Byrne, DO [facility] 04/07/2019 E66.8 Other obesity Sebastian Byrne, DO [facility] 03/30/2019 J44.9 Chronic obstructive pulmonary disease, Ruby Benitez MD unspecified 03/30/2019 R09.02 Hypoxemia Ruby Benitez MD Plan of Treatment 09/01/2019 - Doris Acharya, NPJ44.9 Chronic obstructive pulmonary disease, wuxoricxermN48.02 CqzultjzoX11.8 Other nonspecific abnormal finding of lung fieldFollow up:After any additional testingRecommendations:I will review the images with Dr Benitez on Wednesday and I will call you to discuss next steps and any additional testing Functional Status Description No Information Available Mental Status Description No Information Available Referrals Description No Information Available
[2019-09-24] MEDS ORDERED: LORazepam TAB(*) 1 MG PO ONE (13:37)
[2019-09-24 16:20] VITALS: BP 138/92
== END 2019-09-24 16:21 | disposition home or self-care (01) ==
LOC: ED 12:38
DX: R09.81 Nasal congestion (principal); H61.21 Impacted cerumen, right ear; J44.9 Chronic obstructive pulmonary disease, unspecified; Z99.81 Dependence on supplemental oxygen; I25.10 Atherosclerotic heart disease of native coronary artery without angina pectoris; I10 Essential (primary) hypertension; Z88.8 Allergy status to other drugs, medicaments and biological substances; Z91.030 Bee allergy status; Z87.891 Personal history of nicotine dependence
CPT/HCPCS: 70486; 99284; A9270-GY

== ENCOUNTER 2019-10-12 19:33 | Emergency (ER) | payer MEDICARE, MEDICAID ==
--- NOTE | 2019-10-12 19:47 | UC ---
Throat Pain/Nasal Aden HPI - HPI Summary HPI Summary: 63 yo male presents with nose concern. He tells me that about 2 weeks ago he felt that his right nare was blocked. He went to the ED and exam was normal - per pt and he had a CT scan which was also normal per pt. He was very anxious at the time as he has COPD and uses O2 NC at baseline - he feelings of nasal blockage increased his anxiety. He was discharged from the ED with an rx for ativan. He states the ativan has been helping, but has been making him constipated, therefore he stopped this and got an rx for Xanax through his PCP which he has been taking but hasn't been helping as much. He saw an ENT about a week ago and afrin was sprayed into the nose for a scope procedure in the office and pt states this completely resolved his nasal congestion, but it returned the next day. Everyday multiple times a day he has been sticking things in his right nare and sparying saline nasal spray into it trying to relieve a subjective blockage. He is here today because he had increased anxiety about this. 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 He denies fever, chills, cough, sore throat, increased SOB, chest pain. - History of Current Complaint Chief Complaint: UCRespiratory Stated Complaint: POSSIBLE NASAL BLOCKAGE Time Seen by Provider: 10/12/19 19:47 Hx Obtained From: Patient Onset/Duration: Sudden Onset Pain Intensity: 0 - Allergies/Home Medications Allergies/Adverse Reactions: Allergies Allergy/AdvReac Type Severity Reaction Status Date / Time diltiazem [From Cartia XT] Allergy Severe removed by Verified 10/12/19 19:58 PMD/cardiology bee venom protein (honey bee) Allergy Unknown Verified 10/12/19 19:46 Reaction Details Corticosteroids Allergy Hives Verified 10/12/19 19:46 (Glucocorticoids) prednisolone Allergy Hives Verified 10/12/19 19:46 rosuvastatin [From Crestor] Allergy Hives Verified 10/12/19 19:46 Home Medications: Home Medications ALPRAZolam TAB* [Xanax TAB*] 1 tab PO BID MDD 4 10/12/19 [History Confirmed 03/26] Docusate CAP* [Colace Cap*] 2 tab PO DAILY 10/12/19 [History Confirmed 10/12/19] EPINEPHrine [Epipen] 0.3 mg IM ONCE 10/12/19 [History Confirmed 10/12/19] PMH/Surg Hx/FS Hx/Imm Hx - Additional Past Medical History Additional PMH: Anemia CAD CHF Endocrine History: Diabetes, Dyslipidemia Cardiovascular History: Hypertension Respiratory History: COPD Psychological History: Anxiety - Surgical History Surgical History: Yes Surgery Procedure, Year, and Place: LEFT THUMB - Family History Known Family History: Positive: Respiratory Disease - COPD, Other - Both parents -- [place] - Social History Lives: Alone Alcohol Use: Weekly Alcohol Amount: 1-2 times per week Substance Use Type: None Substance Use Comment - Amount & Last Used: smokes marijuana once/twice a month Smoking Status (MU): Former Smoker Amount Used/How Often: chain smoker- "if i'm awake, i'm smoking" Have You Smoked in the Last Year: Yes When Did the Patient Quit Smoking/Using Tobacco: quit 08/2016 - Immunization History Most Recent Influenza Vaccination: 07/2016 Most Recent Tetanus Shot: 2012 Most Recent Pneumonia Vaccination: 2013 Review of Systems All Other Systems Reviewed And Are Negative: No Constitutional: Positive: Negative Skin: Positive: Negative Eyes: Positive: Negative ENT: Positive: Other - Nare blockage Respiratory: Positive: Negative Cardiovascular: Positive: Negative Gastrointestinal: Positive: Negative Neurological: Positive: Negative Psychological: Positive: Anxious Physical Exam - Summary Physical Exam Summary: GENERAL: NAD. WDWN. SKIN: No rashes, sores, lesions, or open wounds. HEENT: Head: AT/NC Eyes: EOM intact. Conjunctiva clear without inflammation or discharge. Ears: Hearing grossly normal. TMs intact, no bulging, erythema, or edema. Nose: Nasal mucosa pink and moist. Slight septal deviation to the right. NTTP maxillary and frontal sinus. Throat: Posterior oropharynx without exudates, erythema, or tonsillar enlargement. Uvula midline. NECK: Supple. Nontender. No lymphadenopathy. CHEST: Distant breath sounds throughout. No accessory muscle use. Breathing comfortably and in no distress. O2 NC on. CV: RRR. Pulses intact. Cap refill <2seconds NEURO: Alert. PSYCH: Mildly anxious, but consolable. Triage Information Reviewed: Yes Vital Signs: Initial Vital Signs Temp 98 F 10/12/19 19:39 Pulse 78 10/12/19 19:39 Resp 22 10/12/19 19:39 BP 184/92 10/12/19 19:39 Pulse Ox 96 10/12/19 19:39 Vital Signs Reviewed: Yes Throat Pain/Nasal Course/Dx - Course Course Of Treatment: In the clinic he was given a spray of afrin into both nostrils which relieved his congestion. He admits that his anxiety "got out of hand" when he felt that his nose was blocked and he couldn't breathe - but since calming down with our reassurance he feels much better. Will rx for flonase and have him stop putting things in his nose and stop the saline spray. He does have a noted allergy (hives) to prednisone, but he currently takes symbicort without issues. I suspect the flonase will not cause an adverse reaction for him, but made him aware that if he develops a rash/ hives to stop the flonase immediately and seek immediate medical attention. Use the epipen if he develops swelling or trouble breathing. Recommend seeing a different provider at ENT for a second opinion. Keep appt with pulm for wednesday for routine visit. Highly recommended following up with PCP for HTN and anxiety. Pt and neighbor with him voiced understanding and agree with the plan. - Differential Dx/Diagnosis Provider Diagnosis: Nasal congestion Discharge ED - Sign-Out/Discharge Documenting (check all that apply): Patient Departure All imaging exams completed and their final reports reviewed: No Studies - Discharge Plan Condition: Stable Disposition: HOME Prescriptions: Fluticasone NASAL SPRAY 50MCG* [Flonase NASAL SPRAY 50MCG*] 1 spray BOTH NARES BID #1 btl Referrals: Nic Dodson MD [Primary Care Provider] - Nguyễn Grace MD [Medical Doctor] - As Soon As Possible Additional Instructions: If you develop a fever, shortness of breath, chest pain, new or worsening symptoms - please call your PCP or go to the ED immediately. Your blood pressure was high at todays visit. Please see your primary provider within 4 weeks for recheck and re-evaluation. Use the flonase one spray in each nostril twice a day to help relieve your nose symptoms. Keep your appointment with your lung doctor for wednesday for a recheck. I RECOMMEND THAT YOU CALL THE EAR, NOSE, AND THROAT DOCTOR AT THE NUMBER BELOW TO SCHEDULE AN APPOINTMENT FOR A SECOND OPINION ON YOUR NOSE SYMPTOMS - Billing Disposition and Condition Condition: STABLE Disposition: Home
[2019-10-12] MEDS ORDERED: Phenylephrine 0.5% NASAL* BTL BOTH NARES ONE (19:50)
[2019-10-12 20:14] VITALS: BP 159/63
== END 2019-10-12 21:00 | disposition home or self-care (01) ==
LOC: UCEAST 19:33
DX: R09.81 Nasal congestion (principal); I11.0 Hypertensive heart disease with heart failure; I50.9 Heart failure, unspecified; I25.10 Atherosclerotic heart disease of native coronary artery without angina pectoris; E11.9 Type 2 diabetes mellitus without complications; J44.9 Chronic obstructive pulmonary disease, unspecified; F41.9 Anxiety disorder, unspecified; Z79.899 Other long term (current) drug therapy; Z88.8 Allergy status to other drugs, medicaments and biological substances; Z91.030 Bee allergy status; Z87.891 Personal history of nicotine dependence; Z99.81 Dependence on supplemental oxygen
CPT/HCPCS: 99213; A9270-GY; G0463

== ENCOUNTER 2019-12-05 16:28 | Emergency (ER) | payer MEDICARE, MEDICAID ==
--- OUTSIDE RECORDS SUMMARY | 2019-12-05 16:37 | XMS REPORT | Continuity of Care Document ---
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 Problems Active Problems Provider Date Old myocardial infarction Ladonna Langley MD, [facility], Onset: 08/07/2015 [facility] Chronic obstructive lung disease Ladonna Langley MD, [facility], Onset: 2014 [facility] Disturbance in sleep behavior Ruby Benitez MD Onset: 02/17/2016 Obesity Ruby eBnitez MD Onset: 02/17/2016 Emphysema, unspecified Ruby Benitez [...] in August of 2016 Smoking Status Reviewed: 10/16/19 Former Smoker, Quit in August of 2016 Exercise Type/Frequency Exercises sporadically patient walks down the hallway Allergies, Adverse Reactions, Alerts Active Allergies Reaction Severity Comments Date Corticosteroids 06/07/2015 Bee Sting 06/07/2015 Crestor Hives 11/12/2015 Prednisone 02/11/2017 Medications Active Medications SIG Qnty Indications Ordering Date Provider Nebulizer 1 unit nebulization 1units J44.9 Ruby Eli, 02/27/2019 Kit/Tubing/Mouthpiece every 4- 6 hours as MD needed Kit Nebulizer System 1 unit q4 hours and 1units J44.9 Ruby Benitez, 2018 [facility] as needed MD Ghosh Walker pls provide pt with Ruby Benitez, 07/27/2018 [facility] [place] Furosemide take one tablet by 30tabs I27.2 Marcis TOmid 02/03/2017 20mg Tablets mouth every morning MD Korin, KIKA, FSCAI Oxygen please use o2 at 2 1units J43.9 Ruby Benitez, 02/17/2016 Misc l/min during MD exertion 11/23/18 pt using 2.5 l-3l nc Aspir-Low daily Alexisis Marcie 08/07/2015 81mg Tablets MD Korin, DR ANAND, [facility] [place] Nitrostat one sl q5min up to 30tabs Mallika Abraham, 08/02/2015 0.4mg Tablets 3 doses as needed N.P. Sub for chest discomfort. call 911 if pain not resolved after 3 ntg. Combivent Respimat 1 puff puff four Unknown 06/06/2015 times a day 20-100mcg/Act Aerosol Lorazepam Nic Dodson, 1mg Tablets Dulcolax As needed Unknown Epipen 2-Mendoza use as directed Unknown 0.3mg/0.3ML Solution Auto-Inject Ketoconazole apply to affected Unknown 2% Cream area twice a day for one week,then use as necessary Metoprolol Succinate 1 by mouth every Unknown ER day 25mg Tablets ER 24HR Symbicort 2 puff twice a day Unknown 160-4.5mcg/Act Aerosol Metformin HCL 1 by mouth daily Unknown 500mg Tablets Triamcinolone apply thin film Unknown Acetonide twice daily as 0.1% Cream needed apply to coccyx region Atorvastatin Calcium 1 by mouth every Unknown day 80mg Tablets Immunizations Description No Information Available Vital Signs Date Vital Result Comment 10/16/2019 10:42am Height 63 inches 5'3" Weight 197.00 lb Heart Rate 78 /min BP Systolic 142 mmHg BP Diastolic 78 mmHg O2 % BldC Oximetry 92 % 3L BMI (Body Mass Index) 34.9 kg/m2 09/01/2019 11:12am Height 63 inches 5'3" Weight 193.25 lb Heart Rate 58 /min BP Systolic Sitting 132 mmHg Rue reg cuff BP Diastolic Sitting 74 mmHg Rue reg cuff O2 % BldC Oximetry 95 % On 2L O2 via office tank, [place] BMI (Body Mass Index) 34.2 kg/m2 Results Test Acquired Date Facility Test Result H/L Range Note Laboratory test 09/15/2019 [facility] Point of Care 110 mg/dL High 70-[address] [place] [address] [phone] 1 Inter Com Servicer: [id number] Procedures Description No Information Available Medical Devices Description No Information Available Encounters Type Date Location Provider Dx Diagnosis Office Visit 09/01/2019 [facility] Owen44.9 Chronic 11:[facility] Ach[facility] obstructive 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 Engineer pulmonary disease, unspecified R09.02 Hypoxemia R91.8 Other nonspecific abnormal finding of lung field Assessments Date Code Description Provider 10/16/2019 J44.9 Chronic obstructive pulmonary disease, Ruby Benitez MD unspecified 10/16/2019 J96.10 Chronic respiratory failure, unspecified Ruby Benitez MD whether with hypoxi 10/16/2019 R91.8 Other nonspecific abnormal finding of lung Ruby Benitez MD field 09/01/2019 J44.9 Chronic obstructive pulmonary disease, Doris Acharya NP unspecified 09/01/2019 R09.02 Hypoxemia Doris Acharya NP 09/01/2019 R91.8 Other nonspecific abnormal finding of lung Doris Acharya NP field Plan of Treatment Future Appointment(s):11/21/2019 11:00 am - [facility]2019 - Ruby Benitez MDJ44.9 Chronic obstructive pulmonary disease, unspecifiedFollow up:2 bnpguT83.10 Chronic respiratory failure, unspecified whether with swvximX34.8 Other nonspecific abnormal finding of lung fieldNew Xrays:CT Biopsy Lung Right [id number] - [id number], Ordered: 10/16/19 Functional Status Description No Information Available Mental Status Description No Information Available Referrals Refer to Dr Reason for Referral Status Appt Date Shelby Odonnell MD Sent [address] [place] [address] [phone]
--- OUTSIDE RECORDS SUMMARY | 2019-12-05 16:37 | XMS REPORT | Continuity of Care Document ---
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 Onset: 02/06/2019 Social History Type Date Description Comments Sex Unknown Tobacco Use Start: Unknown End: Former Cigarette Smoker 2 quit at age 60 Unknown Packs Daily Tobacco Use Start: Unknown Never Smoked Cigars Tobacco Use Start: Unknown Never Smoked A Pipe Smoking Status Reviewed: 02/06/19 Never Smoked A Pipe Smokeless Tobacco Never Used Smokeless Tobacco ETOH Use Never consumed alcohol Tobacco Use Start: Unknown End: Patient is a former smoker Unknown Allergies, Adverse Reactions, Alerts Active Allergies Reaction Severity Comments Date Corticosteroids 02/07/2019 Bee Sting 02/07/2019 Crestor 02/07/2019 Cartia 02/07/2019 Medications Active Medications SIG Qnty Indications Ordering Date Provider Atorvastatin Calcium Brock Puckett 80mg M.D. Tablets Furosemide iNc Dodson MD 20mg Tablets Metformin HCL Take One Tablet By Unknown 500mg Mouth Twice A Day Tablets Metoprolol Succinate Jose Luis Haji ER M.D. 25mg Tablets ER 24HR Combivent Respimat Inhale One puff By Unknown Mouth Every 4 Hours 20-100mcg/Act Aerosol Symbicort Nic Dodson MD 160-4.5mcg/Act Aerosol Triamcinolone Nic Dodson MD Acetonide 0.1% Cream Aspirin 81 1 by mouth every Unknown 81mg Tablets day DR Sands 1 tab sublingual Unknown 0.4mg Tablets every 5 mins x 3 as Sub needed for chest pain Immunizations Description No Information Available Vital Signs Date Vital Result Comment 11/10/2019 11:02am Weight 197.00 lb Weight 89.359 kg Height 63 inches 5'3" Height in cm's 160.0 cm BMI (Body Mass Index) 34.9 kg/m2 02/07/2019 11:13am Weight 197.00 lb Weight 89.359 kg Height 63 inches 5'3" Height in cm's 160.0 cm BMI (Body Mass Index) 34.9 kg/m2 Results Description No Information Available Procedures Description No Information Available Medical Devices Description No Information Available Encounters Description No Information Available Assessments Date Code Description Provider 11/10/2019 J34.81 Nasal mucositis (ulcerative) Nguyễn Grace MD 11/10/2019 J31.0 Chronic rhinitis Nguyễn Grace MD Plan of Treatment 11/10/2019 - Nguyễn Grace MDJ34.81 Nasal mucositis (ulcerative)Comments:I suggest using some nasal gel 4-6 times a day, I gave him some samples he can get this [id number] no way to improve this because of the amount of oxygen that is flowing through his nose causing dryness and crusting.J31.0 Chronic rhinitis Functional Status Description No Information Available Mental Status Description No Information Available Referrals Description No Information Available
--- NOTE | 2019-12-05 16:56 | ED ---
HPI Chest Pain - HPI Summary HPI Summary: 64 year old M arriving via private car complains of sharp right sided chest pain and shortness of breath that started minutes prior to arrival. Patient states he had lung biopsy done earlier this afternoon through the right side of his upper back. Had CXR done after the procedure. No hx lung cancer. One hour after his biopsy, he developed sharp right sided chest pain which has improved since arrival to the ED. No abdominal pain, pain or swelling in bilateral lower extremities, right shoulder pain. Pain rated 5/10 in severity. Symptoms aggravated by nothing. Symptoms alleviated by nothing. Medications reviewed. Allergies noted. Hx COPD. Wears 3L O2 nasal cannula. Hx DE 2014 after which he had stents placed. - History of Current Complaint Chief Complaint: EDChestPainROMI Time Seen by Provider: 12/05/19 16:46 Hx Obtained From: Patient Onset/Duration: Started Minutes Ago, Still Present Timing: Constant Current Severity: Moderate Pain Intensity: 5 Pain Scale Used: 0-10 Numeric Aggravating Factor(s): Nothing Alleviating Factor(s): Nothing Associated Signs and Symptoms: Positive: Negative - abdominal pain, pain or swelling in bilateral lower extremities, right shoulder pain - Additional Pertinent History Primary Care Physician: [email or web address] - Allergy/Home Medications Allergies/Adverse Reactions: Allergies Allergy/AdvReac Type Severity Reaction Status Date / Time diltiazem [From Cartia XT] Allergy Severe removed by Verified 12/05/19 12:44 PMD/cardiology bee venom protein (honey bee) Allergy Unknown Verified 12/05/19 12:44 Reaction Details Corticosteroids Allergy Hives Verified 12/05/19 12:44 (Glucocorticoids) prednisolone Allergy Hives Verified 12/05/19 12:44 rosuvastatin [From Crestor] Allergy Hives Verified 12/05/19 12:44 Home Medications: Home Medications Aspirin EC TAB* [Ecotrin EC Low Dose 81 MG*] 81 mg PO DAILY 12/05/19 [History Confirmed 12/05/19] Docusate CAP* [Colace Cap*] 200 mg PO DAILY PRN 12/05/19 [History Confirmed ] Furosemide TAB* [Lasix TAB*] 80 mg PO DAILY 12/05/19 [History Confirmed 12/05/19 ] Hydrocortisone 2.5% CREAM(NF) 1 applic TOPICAL BID 12/05/19 [History Confirmed 12/05/19] LORazepam TAB(*) [Ativan 1 MG TAB (*)] 1 mg PO Q6H PRN 12/05/19 [History Confirmed 12/05/19] metFORMIN* [Glucophage 500 MG TAB *] 500 mg PO BID 12/05/19 [History Confirmed 12/05/19] PMH/Surg Hx/FS Hx/Imm Hx Endocrine/Hematology History: Denies: Hx Diabetes, Hx Thyroid Disease Cardiovascular History: Reports: Hx Coronary Artery Disease, Hx Hypertension, Hx Myocardial Infarction Denies: Hx Cardiac Arrest, Hx Congestive Heart Failure, Hx Hypotension, Hx Syncope Respiratory History: Reports: Hx Asthma, Hx Chronic Obstructive Pulmonary Disease (COPD) - 2-3L of O2 at baseline, Hx Pneumonia, Hx Pulmonary Embolism, Other Respiratory Problems/Disorders - PN Denies: Hx Lung Cancer History: Denies: Hx Renal Disease Musculoskeletal History: Denies: Hx Arthritis, Hx Osteoporosis Sensory History: Reports: Hx Contacts or Glasses Denies: Hx Hearing Aid Opthamlomology History: Reports: Hx Contacts or Glasses Neurological History: Denies: Hx Headaches, Hx Seizures - Surgical History Surgery Procedure, Year, and Place: LEFT THUMB Hx Anesthesia Reactions: No - Immunization History Date of Tetanus Vaccine: 2013 Date of Influenza Vaccine: 2013 Infectious Disease History: No Infectious Disease History: Denies: Traveled Outside the [place] in Last 30 Days - Family History Known Family History: Positive: Respiratory Disease - COPD, Other - Both parents -- [place] - Social History Alcohol Use: None Alcohol Amount: 1-2 times per week Hx Substance Use: Yes Substance Use Type: Reports: Sedatives Substance Use Comment - Amount & Last Used: lorazepam Hx Tobacco Use: Yes Smoking Status (MU): Former Smoker Amount Used/How Often: chain smoker- "if i'm awake, i'm smoking" Have You Smoked in the Last Year: Yes Review of Systems Positive: Chest Pain Positive: Shortness Of Breath Negative: Abdominal Pain Musculoskeletal: Negative - pain or swelling in bilateral lower extremities, right shoulder pain All Other Systems Reviewed And Are Negative: Yes Physical Exam - Summary Physical Exam Summary: Constitutional: Well-developed, Well-nourished, Alert. (-) Distressed Skin: Warm, Dry. Biopsy site right upper back HENT: Normocephalic; Atraumatic Eyes: Conjunctiva normal Neck: Musculoskeletal ROM normal neck. (-) JVD, (-) Stridor, (-) Tracheal deviation Cardio: Rhythm regular, rate normal, Heart sounds normal; Intact distal pulses; The pedal pulses are 2+ and symmetric. Radial pulses are 2+ and symmetric. (-) Murmur Pulmonary/Chest wall: Effort normal. (-) Respiratory distress, (-) Wheezes, (-) Rales. Decreased breath sounds in the bilateral lungs Abd: Soft, (-) tenderness, (-) Distension, (-) Guarding, (-) Rebound Musculoskeletal: (-) Edema Lymph: (-) Cervical adenopathy Neuro: Alert, Oriented x3 Psych: Mood and affect Normal Triage Information Reviewed: Yes Vital Signs On Initial Exam: Initial Vitals Temp Pulse Resp BP Pulse Ox 98.5 F 81 30 125/72 87 12/05/19 16:43 12/05/19 16:43 12/05/19 16:43 12/05/19 16:43 12/05/19 16:43 Vital Signs Reviewed: Yes Procedures - Sedation Patient Received Moderate/Deep Sedation with Procedure: No Diagnostics - Vital Signs Vital Signs Temp Pulse Resp BP Pulse Ox 12/05/19 16:43 98.5 F 81 30 125/72 87 - Laboratory Result Diagrams: 12/05/19 16:50 12/05/19 16:50 Lab Statement: Any lab studies that have been ordered have been reviewed, and results considered in the medical decision making process. - EKG 1633 Cardiac Rate: NL - 67 BPM EKG Rhythm: Sinus Rhythm Summary of EKG Findings: No ischemic changes. Dr. Desai has reviewed and interpreted this EKG. Re-Evaluation - Re-Evaluation First Eval Re-Evaluation Time: 17:55 Comment: patient agrees to discharge Chest Pain Course/Dx - Course Course Of Treatment: 64 year old M complains of sharp right sided chest pain and shortness of breath that started minutes prior to arrival. Patient states he had lung biopsy done earlier this afternoon through the right side of his back. Had CXR done after the procedure. One hour after his biopsy, he developed sharp right sided chest pain which has improved since arrival to the ED. No abdominal pain, pain or swelling in bilateral lower extremities, right shoulder pain. Hx COPD. Wears 3L O2 nasal cannula. Hx [place] 2014 after which he had stents placed. Upon exam, the patient has decreased breath sounds in the bilateral lungs. Biopsy site noted in right upper back. Bloodwork results with no significant abnormalities except for WBC 12.8, Hct 41, RDW 16, absolute neuts 9.9, absolute monos 0.9, glucose 137. An EKG shows sinus rhythm 67 BPM and no ischemic changes. Patient's chest pain resolved in the ED. Patient will be discharged home with follow up from his primary care provider in 2-3 days. Patient was instructed to return to Emergency Department for new or worsening symptoms. Patient understands and is agreeable to this plan. - Diagnoses Provider Diagnoses: Atypical chest pain Discharge ED - Sign-Out/Discharge Documenting (check all that apply): Patient Departure - Discharge Plan Condition: Stable Disposition: HOME Patient Education Materials: Chest Pain (ED) Referrals: Nic Dodson MD [Primary Care Provider] - 2 Days Additional Instructions: Follow up with your primary care provider in 2-3 days. Return to the Emergency Department for new or worsening symptoms. - Attestation Statements Document Initiated by Scribe: Yes Documenting Scribe: Alyson Dykes Provider For Whom Vipin is Documenting (Include Credential): Jonh Desai DO Scribe Attestation: Alyson Rendon scribed for Jonh Desai DO on 12/05/19 at 1753. Status of Scribe Document: Ready
[2019-12-05 17:06] LABS: ABS Basophils 0.1 10^3/ul (0-0.2); ABS Eosinophils 0.1 10^3/ul (0-0.6); ABS Lymphocytes 1.8 10^3/ul (1.0-4.8); ABS Monocytes 0.9 10^3/ul (0-0.8); ABS Neutrophils 9.9 10^3/ul (1.5-7.7); Eosinophil % 0.9 %; Hematocrit 41 % (42-52); Hemoglobin 14.2 g/dL (14.0-18.0); Lymphocyte % 14.3 %; Mean Corpuscular HGB Conc 34 g/dL (31-36); Mean Corpuscular Hemoglobin 31 pg (27-31); Mean Corpuscular Volume 90 fL (80-94); Mean Platelet Volume 8.9 fL (7.4-10.4); Platelet Count 295 10^3/uL (150-450); Red Blood Count 4.58 10^6 /uL (4.18-5.48); Red Cell Distribution Width 16 % (10-15); White Blood Count 12.8 10^3/uL (3.5-10.8)
[2019-12-05 17:25] LABS: Troponin I 0.01 ng/mL (<0.03)
[2019-12-05 17:27] LABS: INR 0.98 (0.82-1.09)
[2019-12-05 17:32] LABS: Albumin 4.3 g/dL (3.2-5.2); Albumin/Globulin Ratio 1.3 (1-3); BUN/Creatinine Ratio 13.7 (8-20); Calcium 9.1 mg/dL (8.6-10.3); EGFR African American 130.1 (>60); EGFR Non-African American 107.5 (>60); Globulin 3.2 g/dL (2-4); Potassium 4.1 mmol/L (3.5-5.0); Total Bilirubin 0.5 mg/dL (0.2-1.0); Total Protein 7.5 g/dL (6.4-8.9)
[2019-12-05 17:57] VITALS: BP 177/77
== END 2019-12-05 18:06 | disposition home or self-care (01) ==
LOC: ED 16:28
DX: R07.89 Other chest pain (principal); R06.02 Shortness of breath; J44.9 Chronic obstructive pulmonary disease, unspecified; Z99.81 Dependence on supplemental oxygen; I25.2 Old myocardial infarction; I10 Essential (primary) hypertension; Z95.5 Presence of coronary angioplasty implant and graft; Z79.82 Long term (current) use of aspirin; Z88.8 Allergy status to other drugs, medicaments and biological substances; Z91.030 Bee allergy status; Z87.891 Personal history of nicotine dependence
CPT/HCPCS: 36415; 80053; 84484; 85025; 85610; 93005; 99282

== ENCOUNTER 2021-03-18 18:40 | Inpatient (IN) ==
[2021-03-18] MEDS ORDERED: Albuterol HFA INHALER 8 gm MDI INH ONE (19:22)
[2021-03-18 19:56] LABS: ABS Basophils 0.1 10^3/ul (0-0.2); ABS Eosinophils 0.1 10^3/ul (0-0.6); ABS Lymphocytes 1.5 10^3/ul (1.0-4.8); ABS Neutrophils 9.9 10^3/ul (1.5-7.7); Eosinophil % 1.1 %; Hematocrit 38 % (42-52); Hemoglobin 12.4 g/dL (14.0-18.0); Lymphocyte % 12.3 %; Mean Corpuscular HGB Conc 33 g/dL (31-36); Mean Corpuscular Hemoglobin 29 pg (27-31); Mean Corpuscular Volume 88 fL (80-94); Platelet Count 276 10^3/uL (150-450); Red Blood Count 4.34 10^6 /uL (4.18-5.48); Red Cell Distribution Width 17 % (10-15); White Blood Count 12.6 10^3/uL (3.5-10.8)
[2021-03-18 20:13] LABS: Albumin 4.1 g/dL (3.2-5.2); Albumin/Globulin Ratio 1.5 (1-3); C Reactive Protein 7.53 mg/L (<8.01); EGFR African American 129.7 (>60); EGFR Non-African American 107.2 (>60); Globulin 2.8 g/dL (2-4); Potassium 4.1 mmol/L (3.5-5.0); Total Bilirubin 0.3 mg/dL (0.2-1.0); Total Protein 6.9 g/dL (6.4-8.9)
[2021-03-18 20:14] LABS: Troponin I 0.01 ng/mL (<0.03)
[2021-03-18] MEDS ORDERED: cefTRIAXone 1 gm/50 mL NS BAG 1 GM/50 ML BAG IV ONE (22:48)
[2021-03-18] MEDS ORDERED: Azithromycin 500 mg/250 ml NS 500 MG/250 ML BAG IVPB ONE (22:48)
[2021-03-19] MEDS ORDERED: Dextrose 50% Syringe 50 ml 25 GM/50 ML SYRINGE IV PUSH PRN (00:30)
[2021-03-19] MEDS ORDERED: Albuterol HFA INHALER 8 gm MDI INH PRN (00:55)
[2021-03-19] MEDS: Albuterol/Ipratropium NEB.SOL (2.5/0.5 MG) 3 ML NEB.SOLN INH SCH ×2 (02:19→08:04)
[2021-03-19] MEDS: SPIRIVA Respimat (tiotropium) 2.5 mcg/inh Inhaler INH SCH (08:09)
[2021-03-19 08:52] LABS: Urine Appearance Clear; Urine Bilirubin Negative (Negative); Urine Blood Negative (Negative); Urine Color Straw; Urine Glucose Negative (Negative); Urine Ketones Negative (Negative); Urine Nitrite Negative (Negative); Urine Protein Negative (Negative); Urine Specific Gravity 1.008 (1.002-1.030); Urine Urobilinogen Negative (Negative)
[2021-03-19 09:02] LABS: ABS Basophils 0.1 10^3/ul (0-0.2); ABS Eosinophils 0.1 10^3/ul (0-0.6); ABS Lymphocytes 1.6 10^3/ul (1.0-4.8); ABS Monocytes 0.8 10^3/ul (0-0.8); ABS Neutrophils 9.2 10^3/ul (1.5-7.7); Eosinophil % 1.1 %; Hematocrit 39 % (42-52); Hemoglobin 12.6 g/dL (14.0-18.0); Lymphocyte % 13.2 %; Mean Corpuscular HGB Conc 33 g/dL (31-36); Mean Corpuscular Hemoglobin 29 pg (27-31); Mean Corpuscular Volume 89 fL (80-94); Mean Platelet Volume 8.7 fL (7.4-10.4); Platelet Count 284 10^3/uL (150-450); Red Blood Count 4.36 10^6 /uL (4.18-5.48); Red Cell Distribution Width 16 % (10-15); White Blood Count 11.8 10^3/uL (3.5-10.8)
[2021-03-19 09:34] LABS: EGFR African American 123.8 (>60); EGFR Non-African American 102.3 (>60); Potassium 4.5 mmol/L (3.5-5.0)
[2021-03-19] MEDS ORDERED: Albuterol/Ipratropium NEB.SOL (2.5/0.5 MG) 3 ML NEB.SOLN INH PRN (10:55)
[2021-03-19] MEDS ORDERED: Albuterol/Ipratropium NEB.SOL (2.5/0.5 MG) 3 ML NEB.SOLN INH SCH (11:00)
[2021-03-19 14:30] LABS: Hematocrit 36 % (42-52); Hemoglobin 11.6 g/dL (14.0-18.0)
[2021-03-19] MEDS ORDERED: Iodixanol (CONTRAST) 320 MG/ML 100 ML SDV IV ONE (16:02)
[2021-03-19] MEDS ORDERED: cefTRIAXone 1 gm/50 mL NS BAG 1 GM/50 ML BAG IVPB SCH (23:00)
[2021-03-20 06:28] LABS: ABS Basophils 0.1 10^3/ul (0-0.2); ABS Eosinophils 0.3 10^3/ul (0-0.6); ABS Lymphocytes 1.7 10^3/ul (1.0-4.8); ABS Monocytes 0.9 10^3/ul (0-0.8); ABS Neutrophils 8.7 10^3/ul (1.5-7.7); Eosinophil % 2.6 %; Hematocrit 37 % (42-52); Hemoglobin 11.8 g/dL (14.0-18.0); Lymphocyte % 14.4 %; Mean Corpuscular HGB Conc 32 g/dL (31-36); Mean Corpuscular Hemoglobin 28 pg (27-31); Mean Corpuscular Volume 89 fL (80-94); Mean Platelet Volume 8.9 fL (7.4-10.4); Platelet Count 248 10^3/uL (150-450); Red Blood Count 4.14 10^6 /uL (4.18-5.48); Red Cell Distribution Width 16 % (10-15); White Blood Count 11.7 10^3/uL (3.5-10.8)
[2021-03-20 06:40] LABS: Calcium 8.7 mg/dL (8.6-10.3); EGFR African American 125.7 (>60); EGFR Non-African American 103.9 (>60); Potassium 4.4 mmol/L (3.5-5.0)
[2021-03-20] MEDS: SPIRIVA Respimat (tiotropium) 2.5 mcg/inh Inhaler INH SCH (07:19)
[2021-03-20] MEDS ORDERED: Iodixanol (CONTRAST) 320 MG/ML 100 ML SDV IV ONE (08:49)
[2021-03-20] MEDS: Nystatin TOP POWDER 15 GM BTL TOPICAL SCH ×2 (17:36→22:17)
[2021-03-21 06:04] LABS: ABS Basophils 0.1 10^3/ul (0-0.2); ABS Eosinophils 0.2 10^3/ul (0-0.6); ABS Lymphocytes 1.4 10^3/ul (1.0-4.8); ABS Monocytes 0.8 10^3/ul (0-0.8); ABS Neutrophils 7.6 10^3/ul (1.5-7.7); Eosinophil % 2.3 %; Hematocrit 35 % (42-52); Hemoglobin 11.4 g/dL (14.0-18.0); Lymphocyte % 13.4 %; Mean Corpuscular HGB Conc 32 g/dL (31-36); Mean Corpuscular Hemoglobin 29 pg (27-31); Mean Corpuscular Volume 89 fL (80-94); Mean Platelet Volume 8.5 fL (7.4-10.4); Nucleated Red Blood Cells % 0.1; Platelet Count 247 10^3/uL (150-450); Red Blood Count 3.98 10^6 /uL (4.18-5.48); Red Cell Distribution Width 16 % (10-15); White Blood Count 10.1 10^3/uL (3.5-10.8)
[2021-03-21 06:20] LABS: Calcium 8.6 mg/dL (8.6-10.3); EGFR African American 116.7 (>60); EGFR Non-African American 96.4 (>60); Magnesium 1.8 mg/dL (1.9-2.7); Potassium 4.4 mmol/L (3.5-5.0)
[2021-03-21] MEDS: SPIRIVA Respimat (tiotropium) 2.5 mcg/inh Inhaler INH SCH (07:25)
[2021-03-21] MEDS ORDERED: Lidocaine 2% PF 5 ML VIAL INH ONE (10:01)
[2021-03-21] MEDS ORDERED: Dexmedetomidine 200 mcg/2 ml 2 ml VIAL (200 mcg) ONE (10:03)
[2021-03-21] MEDS ORDERED: Midazolam 2 mg/2 ml VIAL 1 mg/ml 2 ml VIAL (2 mg) ONE (10:06)
[2021-03-21] MEDS ORDERED: Ketamine HCL 50 mg/ml 10 ml VIAL (500 MG) ONE (10:06)
[2021-03-21] MEDS: Nystatin TOP POWDER 15 GM BTL TOPICAL SCH ×2 (10:40→20:37)
[2021-03-21] MEDS ORDERED: Magnesium Sulfate 2 gm BAG 2 GM/50 ML BAG IVPB ONE (12:32)
[2021-03-22 06:33] LABS: ABS Basophils 0.1 10^3/ul (0-0.2); ABS Eosinophils 0.2 10^3/ul (0-0.6); ABS Lymphocytes 1.4 10^3/ul (1.0-4.8); ABS Monocytes 0.8 10^3/ul (0-0.8); ABS Neutrophils 7.4 10^3/ul (1.5-7.7); Eosinophil % 2.4 %; Hematocrit 32 % (42-52); Hemoglobin 10.5 g/dL (14.0-18.0); Lymphocyte % 14.5 %; Mean Corpuscular HGB Conc 33 g/dL (31-36); Mean Corpuscular Hemoglobin 29 pg (27-31); Mean Corpuscular Volume 88 fL (80-94); Mean Platelet Volume 8.4 fL (7.4-10.4); Platelet Count 235 10^3/uL (150-450); Red Cell Distribution Width 16 % (10-15)
[2021-03-22 06:55] LABS: Calcium 8.2 mg/dL (8.6-10.3); EGFR African American 129.7 (>60); EGFR Non-African American 107.2 (>60); Potassium 4.6 mmol/L (3.5-5.0)
[2021-03-22] MEDS: Nystatin TOP POWDER 15 GM BTL TOPICAL SCH ×2 (08:10→19:51)
[2021-03-22] MEDS: SPIRIVA Respimat (tiotropium) 2.5 mcg/inh Inhaler INH SCH (08:17)
[2021-03-23] MEDS: SPIRIVA Respimat (tiotropium) 2.5 mcg/inh Inhaler INH SCH (07:50)
[2021-03-23] MEDS: Nystatin TOP POWDER 15 GM BTL TOPICAL SCH ×2 (08:29→19:12)
[2021-03-24 06:56] LABS: ABS Basophils 0.1 10^3/ul (0-0.2); ABS Eosinophils 0.2 10^3/ul (0-0.6); ABS Lymphocytes 1.2 10^3/ul (1.0-4.8); ABS Monocytes 0.8 10^3/ul (0-0.8); ABS Neutrophils 5.9 10^3/ul (1.5-7.7); Eosinophil % 2.7 %; Hematocrit 33 % (42-52); Hemoglobin 10.7 g/dL (14.0-18.0); Lymphocyte % 14.2 %; Mean Corpuscular HGB Conc 33 g/dL (31-36); Mean Corpuscular Hemoglobin 29 pg (27-31); Mean Corpuscular Volume 89 fL (80-94); Mean Platelet Volume 8.4 fL (7.4-10.4); Platelet Count 235 10^3/uL (150-450); Red Blood Count 3.68 10^6 /uL (4.18-5.48); Red Cell Distribution Width 16 % (10-15); White Blood Count 8.1 10^3/uL (3.5-10.8)
[2021-03-24] MEDS: SPIRIVA Respimat (tiotropium) 2.5 mcg/inh Inhaler INH SCH (07:45)
[2021-03-24] MEDS: Nystatin TOP POWDER 15 GM BTL TOPICAL SCH ×2 (08:53→23:04)
[2021-03-24] MEDS ORDERED: Propofol 10 MG/ML 20 ML BTL ONE (12:35)
[2021-03-24] MEDS ORDERED: Ondansetron 4 mg VIAL 2 MG/ML 2 ml VIAL ONE (12:35)
[2021-03-24] MEDS ORDERED: fentaNYL 100 mcg/2 ml 50 MCG/ML VIAL ONE (12:35)
[2021-03-24] MEDS ORDERED: Midazolam 2 mg/2 ml VIAL 1 mg/ml 2 ml VIAL (2 mg) ONE (12:35)
[2021-03-24] MEDS ORDERED: Lidocaine 2% PF 5 ML VIAL ONE (12:35)
[2021-03-24] MEDS ORDERED: Ketamine HCL 50 mg/ml 10 ml VIAL (500 MG) ONE (13:14)
[2021-03-24] MEDS ORDERED: Phenylephrine 40 mcg/mL 10mL (400mcg) SYRINGE ONE (13:26)
[2021-03-24] MEDS ORDERED: Naloxone 0.4 mg VIAL 0.4 mg/ml 1 ml VIAL IV PRN (14:29)
[2021-03-24] MEDS ORDERED: Levalbuterol 0.63MG/3ML NEB UNIT OF USE INH PRN (14:29)
[2021-03-24] MEDS ORDERED: Levalbuterol 0.63MG/3ML NEB UNIT OF USE INH ONE (14:35)
[2021-03-25] MEDS: SPIRIVA Respimat (tiotropium) 2.5 mcg/inh Inhaler INH SCH (07:39)
[2021-03-25 07:40] VITALS: BP 123/62
[2021-03-25] MEDS: Nystatin TOP POWDER 15 GM BTL TOPICAL SCH (08:35)
== END 2021-03-25 11:40 | disposition home health service (06) | DRG 189 ==
LOC: ED 18:40 → MED 03-19 00:18
PROVIDERS: ADMIT Internal Medicine; ATTEND Hospitalist
PROC: O.CATEE (2021-03-24 14:45)

== ENCOUNTER 2021-10-25 16:26 | Observation (INO) ==
[2021-10-25 17:26] LABS: Venous Bicarbonate HCO3 29.6 mmol/L (24-28)
[2021-10-25 17:27] LABS: ABS Basophils 0.1 10^3/ul (0-0.2); ABS Eosinophils 0.1 10^3/ul (0-0.6); ABS Lymphocytes 1.3 10^3/ul (1.0-4.8); ABS Monocytes 1.1 10^3/ul (0-0.8); ABS Neutrophils 8.8 10^3/ul (1.5-7.7); Eosinophil % 0.8 %; Hematocrit 41 % (42-52); Hemoglobin 13.3 g/dL (14.0-18.0); Lymphocyte % 11.3 %; Mean Corpuscular HGB Conc 33 g/dL (31-36); Mean Corpuscular Hemoglobin 29 pg (27-31); Mean Corpuscular Volume 89 fL (80-94); Mean Platelet Volume 8.9 fL (7.4-10.4); Platelet Count 284 10^3/uL (150-450); Red Blood Count 4.57 10^6 /uL (4.18-5.48); Red Cell Distribution Width 16 % (10-15); White Blood Count 11.3 10^3/uL (3.5-10.8)
[2021-10-25 17:35] LABS: Activated Partial Thrombo Time 30.1 seconds (26.0-38.0); INR 1.05 (0.86-1.15)
[2021-10-25 17:44] LABS: Albumin 4.3 g/dL (3.2-5.2); Albumin/Globulin Ratio 1.4 (1-3); C Reactive Protein 8.59 mg/L (<8.01); Calcium 9.1 mg/dL (8.6-10.3); Globulin 3.1 g/dL (2-4); Potassium 4.2 mmol/L (3.5-5.0); Total Bilirubin 0.4 mg/dL (0.2-1.0); Total Protein 7.4 g/dL (6.4-8.9)
[2021-10-25] MEDS ORDERED: Lactated Ringers 500 ml BAG 500 ML IV ONE (18:35)
[2021-10-25] MEDS ORDERED: Iodixanol (CONTRAST) 320 MG/ML 100 ML SDV IV ONE (18:37)
[2021-10-25] MEDS ORDERED: methylPREDNISolone 125 mg 2 ML VIAL IV ONE (19:25)
[2021-10-25] MEDS ORDERED: Azithromycin 500 mg/250 ml NS 500 MG/250 ML BAG IVPB ONE (19:27)
[2021-10-25] MEDS ORDERED: cefTRIAXone 1 gm/50 mL NS BAG 1 GM/50 ML BAG IV ONE (19:27)
[2021-10-25] MEDS ORDERED: Ondansetron 4 mg VIAL 2 MG/ML 2 ml VIAL IV PRN (21:31)
[2021-10-25] MEDS ORDERED: Dextrose 50% Syringe 50 ml 25 GM/50 ML SYRINGE IV PUSH PRN (23:21)
[2021-10-26] MEDS: Enoxaparin 40 MG/0.4 ML SYR SUBCUT SCH ×2 (02:44→21:53)
[2021-10-26] MEDS: Albuterol HFA INHALER 8 gm MDI INH SCH ×6 (03:30→21:26)
[2021-10-26] MEDS ORDERED: Albuterol/Ipratropium NEB.SOL (2.5/0.5 MG) 3 ML NEB.SOLN INH SCH (07:00)
[2021-10-26] MEDS: Mometasone/Formoter 200/5 MDI INH SCH ×2 (07:31→21:26)
[2021-10-26] MEDS: Aspirin EC 81 mg TAB.EC (enteric coated) PO SCH (10:03)
[2021-10-26] MEDS: PTO: Budesonide/Formote 160/4.5(NF) MDI INH SCH (20:00)
[2021-10-26] MEDS: PTO: Albuterol/Ipratropium RESP(NF) MDI (Combivent Respimat) INH SCH (21:26)
[2021-10-27] MEDS: Albuterol HFA INHALER 8 gm MDI INH SCH ×7 (00:54→23:00)
[2021-10-27] MEDS: Aspirin EC 81 mg TAB.EC (enteric coated) PO SCH (07:33)
[2021-10-27] MEDS: PTO: Albuterol/Ipratropium RESP(NF) MDI (Combivent Respimat) INH SCH ×4 (08:38→20:24)
[2021-10-27] MEDS: PTO: Budesonide/Formote 160/4.5(NF) MDI INH SCH ×2 (08:39→20:25)
[2021-10-27] MEDS: Mometasone/Formoter 200/5 MDI INH SCH ×2 (08:40→20:19)
[2021-10-27] MEDS: Enoxaparin 40 MG/0.4 ML SYR SUBCUT SCH (22:04)
[2021-10-28] MEDS: Albuterol HFA INHALER 8 gm MDI INH SCH ×3 (03:42→11:24)
[2021-10-28 06:39] LABS: Calcium 8.2 mg/dL (8.6-10.3); Potassium 4.3 mmol/L (3.5-5.0); eGFR CKD-EPI 97.4 (>60)
[2021-10-28] MEDS: PTO: Albuterol/Ipratropium RESP(NF) MDI (Combivent Respimat) INH SCH ×2 (07:38→11:23)
[2021-10-28] MEDS: Mometasone/Formoter 200/5 MDI INH SCH (07:38)
[2021-10-28] MEDS: PTO: Budesonide/Formote 160/4.5(NF) MDI INH SCH (07:39)
[2021-10-28] MEDS: Aspirin EC 81 mg TAB.EC (enteric coated) PO SCH (07:52)
[2021-10-28 11:38] VITALS: BP 116/48
[2021-10-28 15:42] LABS: Ferritin 15.9 ng/mL (24-336)
== END 2021-10-28 12:50 | disposition home or self-care (01) ==
LOC: EDHOLD 16:26 → ED 16:26 → SUATTDRO 21:31 → MEDTELE 23:15
PROVIDERS: ADMIT Student in an Organized Health Care Education/Training Program; ATTEND Internal Medicine

== ENCOUNTER 2022-01-07 17:34 | Inpatient (IN) ==
[2022-01-07] MEDS ORDERED: Albuterol HFA INHALER 8 gm MDI INH ONE ×2 (18:28→21:26)
[2022-01-07 19:15] LABS: ABS Basophils 0.1 10^3/ul (0-0.2); ABS Eosinophils 0.1 10^3/ul (0-0.6); ABS Lymphocytes 1.7 10^3/ul (1.0-4.8); ABS Neutrophils 8.7 10^3/ul (1.5-7.7); Eosinophil % 0.9 %; Hematocrit 42 % (42-52); Hemoglobin 13.8 g/dL (14.0-18.0); Lymphocyte % 14.9 %; Mean Corpuscular HGB Conc 33 g/dL (31-36); Mean Corpuscular Hemoglobin 29 pg (27-31); Mean Corpuscular Volume 89 fL (80-94); Platelet Count 276 10^3/uL (150-450); Red Blood Count 4.74 10^6 /uL (4.18-5.48); Red Cell Distribution Width 16 % (10-15); White Blood Count 11.7 10^3/uL (3.5-10.8)
[2022-01-07 20:00] LABS: CO2 Carbon Dioxide 37 mmol/L (22-32); Chloride 98 mmol/L (101-111); Sodium 139 mmol/L (135-145)
[2022-01-07 20:01] LABS: ALT 30 U/L (7-52); Albumin 4.9 g/dL (3.2-5.2); Albumin/Globulin Ratio 1.8 (1-3); Alkaline Phosphatase 59 U/L (35-149); Anion Gap 4 mmol/L (2-11); Blood Urea Nitrogen 15 mg/dL (6-24); C Reactive Protein 7.65 mg/L (<8.01); Calcium 9.3 mg/dL (8.6-10.3); Globulin 2.8 g/dL (2-4); Glucose 97 mg/dL (70-100); Total Protein 7.7 g/dL (6.4-8.9); eGFR CKD-EPI 97.9 (>60)
[2022-01-07 21:32] LABS: Potassium Redraw 4.4 mmol/L (3.5-5.0)
[2022-01-07 21:48] LABS: PCO2 Arterial 54 mmHg (35-45); PO2 Arterial 97 mmHg (80-100)
[2022-01-08] MEDS ORDERED: Albuterol/Ipratropium NEB.SOL (2.5/0.5 MG) 3 ML NEB.SOLN INH SCH
[2022-01-08] MEDS ORDERED: Dextrose 50% Syringe 50 ml 25 GM/50 ML SYRINGE IV PUSH PRN (00:07)
[2022-01-08] MEDS ORDERED: Albuterol/Ipratropium NEB.SOL (2.5/0.5 MG) 3 ML NEB.SOLN INH PRN (02:47)
[2022-01-08] MEDS: Enoxaparin 40 MG/0.4 ML SYR SUBCUT SCH ×2 (03:55→20:35)
[2022-01-08] MEDS ORDERED: cefTRIAXone 1 gm/50 mL NS BAG 1 GM/50 ML BAG IVPB SCH (04:00)
[2022-01-08] MEDS: Azithromycin 500 mg/250 ml NS 500 MG/250 ML BAG IVPB SCH (04:17)
[2022-01-08 05:46] LABS: ABS Basophils 0.1 10^3/ul (0-0.2); ABS Lymphocytes 1.1 10^3/ul (1.0-4.8); ABS Monocytes 0.8 10^3/ul (0-0.8); ABS Neutrophils 9.4 10^3/ul (1.5-7.7); Hematocrit 37 % (42-52); Hemoglobin 12.2 g/dL (14.0-18.0); Lymphocyte % 9.7 %; Mean Corpuscular HGB Conc 33 g/dL (31-36); Mean Corpuscular Hemoglobin 29 pg (27-31); Mean Corpuscular Volume 89 fL (80-94); Platelet Count 243 10^3/uL (150-450); Red Blood Count 4.14 10^6 /uL (4.18-5.48); Red Cell Distribution Width 16 % (10-15); White Blood Count 11.3 10^3/uL (3.5-10.8)
[2022-01-08 06:25] LABS: Calcium 8.7 mg/dL (8.6-10.3); Magnesium 1.9 mg/dL (1.9-2.7); Potassium 4.7 mmol/L (3.5-5.0); eGFR CKD-EPI 94.6 (>60)
[2022-01-08] MEDS ORDERED: Magnesium Sulfate 2 gm BAG 2 GM/50 ML BAG IVPB ONE (07:15)
[2022-01-08] MEDS: Mometasone/Formoter 100/5 MDI INH SCH ×2 (07:40→19:57)
[2022-01-08] MEDS: Aspirin EC 81 mg TAB.EC (enteric coated) PO SCH (08:47)
[2022-01-08] MEDS: Fluticasone NASAL SPRAY 50MCG 16 gm SPRAY BTL BOTH NARES SCH (16:26)
[2022-01-09] MEDS: Azithromycin 500 mg/250 ml NS 500 MG/250 ML BAG IVPB SCH (04:40)
[2022-01-09 05:53] LABS: Blood Urea Nitrogen 16 mg/dL (6-24); CO2 Carbon Dioxide 33 mmol/L (22-32); Calcium 8.6 mg/dL (8.6-10.3); Chloride 102 mmol/L (101-111); Glucose 165 mg/dL (70-100); Sodium 141 mmol/L (135-145); eGFR CKD-EPI 93.3 (>60)
[2022-01-09 05:54] LABS: ABS Basophils 0.1 10^3/ul (0-0.2); ABS Eosinophils 0.1 10^3/ul (0-0.6); ABS Lymphocytes 2.5 10^3/ul (1.0-4.8); ABS Neutrophils 9.7 10^3/ul (1.5-7.7); Eosinophil % 1.1 %; Hematocrit 40 % (42-52); Hemoglobin 12.8 g/dL (14.0-18.0); Lymphocyte % 18.4 %; Mean Corpuscular HGB Conc 32 g/dL (31-36); Mean Corpuscular Hemoglobin 29 pg (27-31); Mean Corpuscular Volume 90 fL (80-94); Red Blood Count 4.39 10^6 /uL (4.18-5.48); Red Cell Distribution Width 16 % (10-15); White Blood Count 13.3 10^3/uL (3.5-10.8)
[2022-01-09 05:55] LABS: Anion Gap 6 mmol/L (2-11)
[2022-01-09] MEDS: Mometasone/Formoter 100/5 MDI INH SCH ×2 (08:04→20:11)
[2022-01-09] MEDS: Fluticasone NASAL SPRAY 50MCG 16 gm SPRAY BTL BOTH NARES SCH (09:11)
[2022-01-09] MEDS: Aspirin EC 81 mg TAB.EC (enteric coated) PO SCH (09:12)
[2022-01-09 09:38] LABS: Mean Platelet Volume 9.7 fL (7.4-10.4); Platelet Count 225 10^3/uL (150-450)
[2022-01-09] MEDS: Enoxaparin 40 MG/0.4 ML SYR SUBCUT SCH (20:51)
[2022-01-09] MEDS ORDERED: Saline NASAL SPRAY 0.65% BTL BOTH NARES PRN (21:22)
[2022-01-09] MEDS ORDERED: Butalb/Acetamin/Caff TAB 325-50-40MG PO ONE (21:24)
[2022-01-10 06:25] LABS: ABS Basophils 0.1 10^3/ul (0-0.2); ABS Eosinophils 0.1 10^3/ul (0-0.6); ABS Lymphocytes 2.1 10^3/ul (1.0-4.8); ABS Monocytes 0.8 10^3/ul (0-0.8); ABS Neutrophils 7.5 10^3/ul (1.5-7.7); Eosinophil % 0.7 %; Hematocrit 38 % (42-52); Hemoglobin 12.3 g/dL (14.0-18.0); Lymphocyte % 19.9 %; Mean Corpuscular HGB Conc 32 g/dL (31-36); Mean Corpuscular Hemoglobin 29 pg (27-31); Mean Corpuscular Volume 90 fL (80-94); Mean Platelet Volume 9.2 fL (7.4-10.4); Platelet Count 243 10^3/uL (150-450); Red Blood Count 4.24 10^6 /uL (4.18-5.48); Red Cell Distribution Width 16 % (10-15); White Blood Count 10.6 10^3/uL (3.5-10.8)
[2022-01-10] MEDS: Mometasone/Formoter 100/5 MDI INH SCH ×2 (07:09→19:27)
[2022-01-10] MEDS: Fluticasone NASAL SPRAY 50MCG 16 gm SPRAY BTL BOTH NARES SCH (09:48)
[2022-01-10] MEDS: Aspirin EC 81 mg TAB.EC (enteric coated) PO SCH (09:49)
[2022-01-10] MEDS: Enoxaparin 40 MG/0.4 ML SYR SUBCUT SCH (20:50)
[2022-01-11] MEDS: Mometasone/Formoter 100/5 MDI INH SCH ×2 (07:08→19:19)
[2022-01-11] MEDS: Aspirin EC 81 mg TAB.EC (enteric coated) PO SCH (09:12)
[2022-01-11] MEDS: Fluticasone NASAL SPRAY 50MCG 16 gm SPRAY BTL BOTH NARES SCH (09:14)
[2022-01-11] MEDS: Enoxaparin 40 MG/0.4 ML SYR SUBCUT SCH (20:36)
[2022-01-12] MEDS: Mometasone/Formoter 100/5 MDI INH SCH ×2 (07:24→19:45)
[2022-01-12] MEDS: Aspirin EC 81 mg TAB.EC (enteric coated) PO SCH (09:07)
[2022-01-12] MEDS: Fluticasone NASAL SPRAY 50MCG 16 gm SPRAY BTL BOTH NARES SCH (12:37)
[2022-01-12] MEDS: Enoxaparin 40 MG/0.4 ML SYR SUBCUT SCH (20:50)
[2022-01-13] MEDS: Mometasone/Formoter 100/5 MDI INH SCH (07:35)
[2022-01-13] MEDS: Aspirin EC 81 mg TAB.EC (enteric coated) PO SCH (08:59)
[2022-01-13] MEDS: Fluticasone NASAL SPRAY 50MCG 16 gm SPRAY BTL BOTH NARES SCH (09:10)
[2022-01-13 12:09] LABS: Rapid COVID-19 Molecular Undetected (Undetected)
[2022-01-13 12:50] VITALS: BP 127/70
[2022-01-13] MEDS ORDERED: COVID-19 VACCINE, MRNA(MODERNA) BOOSTER/PF 50 MCG/0.25 ML IM ONE (13:30)
== END 2022-01-13 13:40 | DRG 189 ==
LOC: ED 17:34 → SUATTDRO 23:58 → EDHOLD 23:58 → MEDTELE 01-08 02:42
PROVIDERS: ADMIT Internal Medicine; ATTEND Family Medicine

== ENCOUNTER 2022-07-05 00:32 | Inpatient (IN) ==
[2022-07-05 02:08] LABS: ABS Basophils 0.1 10^3/ul (0-0.2); ABS Eosinophils 0.1 10^3/ul (0-0.6); ABS Lymphocytes 1.2 10^3/ul (1.0-4.8); ABS Monocytes 1.5 10^3/ul (0-0.8); ABS Neutrophils 15.1 10^3/ul (1.5-7.7); Eosinophil % 0.4 %; Hematocrit 41 % (42-52); Hemoglobin 12.8 g/dL (14.0-18.0); Lymphocyte % 6.8 %; Mean Corpuscular HGB Conc 31 g/dL (31-36); Mean Corpuscular Hemoglobin 27 pg (27-31); Mean Corpuscular Volume 87 fL (80-94); Mean Platelet Volume 8.6 fL (7.4-10.4); Platelet Count 275 10^3/uL (150-450); Red Blood Count 4.68 10^6 /uL (4.18-5.48); Red Cell Distribution Width 16 % (10-15)
[2022-07-05 02:19] LABS: Activated Partial Thrombo Time 29.9 seconds (26.0-38.0); INR 1.01 (0.89-1.11)
[2022-07-05 02:35] LABS: High Sens Troponin Baseline 12 pg/mL (<20)
[2022-07-05] MEDS ORDERED: Azithromycin 500 mg/250 ml NS 500 MG/250 ML BAG IVPB ONE (02:38)
[2022-07-05] MEDS ORDERED: cefTRIAXone 1 gm/50 mL D5W 1 GM/50 ML BAG IV ONE (02:38)
[2022-07-05 03:03] LABS: ALT 23 U/L (7-52); Albumin 4.1 g/dL (3.2-5.2); Albumin/Globulin Ratio 1.3 (1-3); Alkaline Phosphatase 79 U/L (35-149); Anion Gap 6 mmol/L (2-11); Blood Urea Nitrogen 15 mg/dL (6-24); C Reactive Protein 31.99 mg/L (<8.01); CO2 Carbon Dioxide 35 mmol/L (22-32); Chloride 97 mmol/L (101-111); Globulin 3.1 g/dL (2-4); Glucose 109 mg/dL (70-100); Sodium 138 mmol/L (135-145); Total Protein 7.2 g/dL (6.4-8.9)
[2022-07-05 03:24] LABS: eGFR CKD-EPI 93.3 (>60)
[2022-07-05] MEDS ORDERED: Iodixanol (CONTRAST) 320 MG/ML 100 ML SDV IV ONE (03:27)
[2022-07-05] MEDS ORDERED: Metoclopramide 5 MG/ML VIAL (10 mg) IV SLOW PU ONE (03:32)
[2022-07-05 03:39] LABS: High Sensitivity Troponin 1 Hr 14 pg/mL (<20)
[2022-07-05 03:54] LABS: Potassium Redraw 4.4 mmol/L (3.5-5.0)
[2022-07-05 04:03] LABS: Urine Appearance Clear; Urine Bilirubin Negative (Negative); Urine Color Yellow; Urine Glucose Negative (Negative)
[2022-07-05 04:04] LABS: Urine Blood Negative (Negative); Urine Ketones Negative (Negative); Urine Nitrite Negative (Negative); Urine Protein Negative (Negative); Urine Specific Gravity 1.025 (1.005-1.030); Urine Urobilinogen 0.2 (Negative) (Negative); Urine pH 5.5 (5.0-9.0)
[2022-07-05 04:29] LABS: Urine Bacteria 1+ (Absent); Urine Red Blood Cell 1+(3-5/hpf) (Absent); Urine Squamous Epithelial Cell Present (Absent); Urine White Blood Cell 3+(>20/hpf) (Absent)
[2022-07-05] MEDS ORDERED: Ondansetron 4 mg VIAL 2 MG/ML 2 ml VIAL IV PRN (09:13)
[2022-07-05] MEDS ORDERED: NS 0.9% 1000 ml BAG 1,000 ML IV SCH (09:15)
[2022-07-05] MEDS ORDERED: Piperacillin/Tazobac ADVAN 3.375 GM in NS 0.9% 100 ml BAG 100 ML IV ONE (09:23)
[2022-07-05] MEDS ORDERED: Dextrose 50% Syringe 50 ml 25 GM/50 ML SYRINGE IV PUSH PRN (09:41)
[2022-07-05] MEDS ORDERED: methylPREDNISolone SOD SUCC 125 mg 2 ML VIAL IV ONE (09:44)
[2022-07-05] MEDS ORDERED: methylPREDNISolone SOD SUCC 40 mg/ml 1 ml VIAL IV SCH (10:00)
[2022-07-05] MEDS ORDERED: Zosyn per Pharmacy NOTE FOLLOW UP SCH (10:00)
[2022-07-05] MEDS: Aspirin EC 81 mg TAB.EC (enteric coated) PO SCH (11:06)
[2022-07-05] MEDS: Enoxaparin 40 MG/0.4 ML SYR SUBCUT SCH (11:06)
[2022-07-05] MEDS: Mupirocin 2% OINT TUBE TOPICAL SCH ×2 (11:06→20:30)
[2022-07-05] MEDS: FLUOCINONIDE 0.05% TOPICAL SCH ×2 (11:06→20:29)
[2022-07-05 11:11] LABS: Magnesium 1.6 mg/dL (1.9-2.7)
[2022-07-05] MEDS ORDERED: Albuterol/Ipratropium RESP(NF) MDI (Combivent Respimat) INH SCH (13:00)
[2022-07-05] MEDS: Albuterol HFA INHALER 8 gm MDI INH SCH ×3 (13:21→19:29)
[2022-07-05] MEDS: SPIRIVA Respimat (tiotropium) 2.5 mcg/inh Inhaler INH SCH (13:22)
[2022-07-05] MEDS: ZOSYN 3.375 GM Q8H per EXTENDED INFUSION IV SCH ×2 (13:34→21:06)
[2022-07-05] MEDS: methylPREDNISolone SOD SUCC 40 mg/ml 1 ml VIAL IV SCH (16:58)
[2022-07-05] MEDS: Mometasone/Formoter 200/5 MDI INH SCH (19:30)
[2022-07-06] MEDS: methylPREDNISolone SOD SUCC 40 mg/ml 1 ml VIAL IV SCH ×4 (02:29→18:18)
[2022-07-06] MEDS: Azithromycin 500 mg/250 ml NS 500 MG/250 ML BAG IVPB SCH (02:29)
[2022-07-06 05:15] LABS: ABS Lymphocytes 0.6 10^3/ul (1.0-4.8); ABS Monocytes 0.2 10^3/ul (0-0.8); ABS Neutrophils 12.7 10^3/ul (1.5-7.7); Hematocrit 35 % (42-52); Hemoglobin 11.4 g/dL (14.0-18.0); Lymphocyte % 4.5 %; Mean Corpuscular HGB Conc 32 g/dL (31-36); Mean Corpuscular Hemoglobin 28 pg (27-31); Mean Corpuscular Volume 86 fL (80-94); Mean Platelet Volume 8.7 fL (7.4-10.4); Platelet Count 276 10^3/uL (150-450); Red Blood Count 4.11 10^6 /uL (4.18-5.48); Red Cell Distribution Width 16 % (10-15); White Blood Count 13.6 10^3/uL (3.5-10.8)
[2022-07-06 05:33] LABS: Calcium 8.5 mg/dL (8.6-10.3); Potassium 4.8 mmol/L (3.5-5.0); eGFR CKD-EPI 97.5 (>60)
[2022-07-06] MEDS: ZOSYN 3.375 GM Q8H per EXTENDED INFUSION IV SCH ×3 (05:34→22:39)
[2022-07-06] MEDS: SPIRIVA Respimat (tiotropium) 2.5 mcg/inh Inhaler INH SCH (08:01)
[2022-07-06] MEDS: Albuterol HFA INHALER 8 gm MDI INH SCH ×4 (08:02→19:56)
[2022-07-06] MEDS: Mometasone/Formoter 200/5 MDI INH SCH ×2 (08:02→19:56)
[2022-07-06 08:05] LABS: Magnesium 1.9 mg/dL (1.9-2.7)
[2022-07-06] MEDS: Aspirin EC 81 mg TAB.EC (enteric coated) PO SCH (10:43)
[2022-07-06] MEDS: Enoxaparin 40 MG/0.4 ML SYR SUBCUT SCH (10:45)
[2022-07-06] MEDS: FLUOCINONIDE 0.05% TOPICAL SCH ×2 (10:46→21:35)
[2022-07-06] MEDS: Mupirocin 2% OINT TUBE TOPICAL SCH ×2 (10:48→21:55)
[2022-07-06] MEDS: Fluticasone NASAL SPRAY 50MCG 16 gm SPRAY BTL BOTH NARES SCH (18:17)
[2022-07-07] MEDS: Azithromycin 500 mg/250 ml NS 500 MG/250 ML BAG IVPB SCH (02:46)
[2022-07-07] MEDS: methylPREDNISolone SOD SUCC 40 mg/ml 1 ml VIAL IV SCH ×2 (02:47→09:01)
[2022-07-07 05:51] LABS: ABS Lymphocytes 0.7 10^3/ul (1.0-4.8); ABS Monocytes 0.4 10^3/ul (0-0.8); ABS Neutrophils 15.4 10^3/ul (1.5-7.7); Eosinophil % 0.1 %; Hematocrit 35 % (42-52); Hemoglobin 11.3 g/dL (14.0-18.0); Lymphocyte % 4.4 %; Mean Corpuscular HGB Conc 32 g/dL (31-36); Mean Corpuscular Hemoglobin 28 pg (27-31); Mean Corpuscular Volume 88 fL (80-94); Mean Platelet Volume 9.3 fL (7.4-10.4); Platelet Count 302 10^3/uL (150-450); Red Cell Distribution Width 16 % (10-15); White Blood Count 16.7 10^3/uL (3.5-10.8)
[2022-07-07] MEDS: ZOSYN 3.375 GM Q8H per EXTENDED INFUSION IV SCH ×3 (05:59→22:14)
[2022-07-07 06:30] LABS: Calcium 8.5 mg/dL (8.6-10.3); eGFR CKD-EPI 102.2 (>60)
[2022-07-07 06:31] LABS: Potassium 5.4 mmol/L (3.5-5.0)
[2022-07-07] MEDS ORDERED: SODIUM ZIRCONIUM CYCLOSILICATE 10 GM PACKET PO ONE (07:18)
[2022-07-07] MEDS: Albuterol HFA INHALER 8 gm MDI INH SCH ×4 (07:49→19:38)
[2022-07-07] MEDS: Mometasone/Formoter 200/5 MDI INH SCH ×2 (07:50→19:38)
[2022-07-07] MEDS: SPIRIVA Respimat (tiotropium) 2.5 mcg/inh Inhaler INH SCH (07:50)
[2022-07-07] MEDS: Aspirin EC 81 mg TAB.EC (enteric coated) PO SCH (09:01)
[2022-07-07] MEDS: Enoxaparin 40 MG/0.4 ML SYR SUBCUT SCH (09:01)
[2022-07-07] MEDS: Mupirocin 2% OINT TUBE TOPICAL SCH (09:04)
[2022-07-07] MEDS: FLUOCINONIDE 0.05% TOPICAL SCH (09:04)
[2022-07-07] MEDS: Fluticasone NASAL SPRAY 50MCG 16 gm SPRAY BTL BOTH NARES SCH (09:17)
[2022-07-07] MEDS: Ketoconazole 2 % CREAM (NF) 30 GM TUBE TOPICAL SCH (10:39)
[2022-07-07 19:08] LABS: Calcium 8.7 mg/dL (8.6-10.3); Potassium 4.5 mmol/L (3.5-5.0); eGFR CKD-EPI 99.9 (>60)
[2022-07-08] MEDS ORDERED: Al Hydrox/Mg Hydrox/Simet LIQ 30 ML UDC PO ONE (04:47)
[2022-07-08] MEDS: ZOSYN 3.375 GM Q8H per EXTENDED INFUSION IV SCH ×3 (05:21→22:24)
[2022-07-08 05:39] LABS: ABS Lymphocytes 1.5 10^3/ul (1.0-4.8); ABS Monocytes 1.2 10^3/ul (0-0.8); ABS Neutrophils 10.9 10^3/ul (1.5-7.7); Hematocrit 36 % (42-52); Hemoglobin 11.5 g/dL (14.0-18.0); Lymphocyte % 10.8 %; Mean Corpuscular HGB Conc 32 g/dL (31-36); Mean Corpuscular Hemoglobin 28 pg (27-31); Mean Corpuscular Volume 88 fL (80-94); Mean Platelet Volume 8.8 fL (7.4-10.4); Platelet Count 295 10^3/uL (150-450); Red Blood Count 4.09 10^6 /uL (4.18-5.48); Red Cell Distribution Width 17 % (10-15); White Blood Count 13.6 10^3/uL (3.5-10.8)
[2022-07-08 05:56] LABS: Calcium 8.4 mg/dL (8.6-10.3); Magnesium 2.1 mg/dL (1.9-2.7); Potassium 4.3 mmol/L (3.5-5.0); eGFR CKD-EPI 96.4 (>60)
[2022-07-08] MEDS: Albuterol HFA INHALER 8 gm MDI INH SCH ×3 (07:19→19:03)
[2022-07-08] MEDS: Mometasone/Formoter 200/5 MDI INH SCH ×2 (07:19→19:03)
[2022-07-08] MEDS: SPIRIVA Respimat (tiotropium) 2.5 mcg/inh Inhaler INH SCH (07:20)
[2022-07-08] MEDS: Aspirin EC 81 mg TAB.EC (enteric coated) PO SCH (09:38)
[2022-07-08] MEDS: Enoxaparin 40 MG/0.4 ML SYR SUBCUT SCH (10:40)
[2022-07-08] MEDS: Ketoconazole 2 % CREAM (NF) 30 GM TUBE TOPICAL SCH (10:47)
[2022-07-08] MEDS: Fluticasone NASAL SPRAY 50MCG 16 gm SPRAY BTL BOTH NARES SCH (10:48)
[2022-07-08] MEDS ORDERED: Furosemide 40 mg/4 ml IV VIAL IV ONE (13:47)
[2022-07-09] MEDS: Albuterol HFA INHALER 8 gm MDI INH SCH ×2 (00:38→07:30)
[2022-07-09 05:22] LABS: ABS Monocytes 1.2 10^3/ul (0-0.8); ABS Neutrophils 9.2 10^3/ul (1.5-7.7); Eosinophil % 0.3 %; Hematocrit 36 % (42-52); Hemoglobin 11.7 g/dL (14.0-18.0); Lymphocyte % 15.9 %; Mean Corpuscular HGB Conc 32 g/dL (31-36); Mean Corpuscular Hemoglobin 28 pg (27-31); Mean Corpuscular Volume 86 fL (80-94); Mean Platelet Volume 8.7 fL (7.4-10.4); Platelet Count 306 10^3/uL (150-450); Red Blood Count 4.19 10^6 /uL (4.18-5.48); Red Cell Distribution Width 16 % (10-15); White Blood Count 12.4 10^3/uL (3.5-10.8)
[2022-07-09 05:50] LABS: Calcium 8.3 mg/dL (8.6-10.3); Magnesium 2.1 mg/dL (1.9-2.7); Potassium 4.4 mmol/L (3.5-5.0); eGFR CKD-EPI 101.2 (>60)
[2022-07-09] MEDS: ZOSYN 3.375 GM Q8H per EXTENDED INFUSION IV SCH (06:00)
[2022-07-09] MEDS: Mometasone/Formoter 200/5 MDI INH SCH (07:28)
[2022-07-09] MEDS: SPIRIVA Respimat (tiotropium) 2.5 mcg/inh Inhaler INH SCH (07:29)
[2022-07-09] MEDS: Aspirin EC 81 mg TAB.EC (enteric coated) PO SCH (07:51)
[2022-07-09] MEDS: Fluticasone NASAL SPRAY 50MCG 16 gm SPRAY BTL BOTH NARES SCH (07:55)
[2022-07-09] MEDS: Ketoconazole 2 % CREAM (NF) 30 GM TUBE TOPICAL SCH (07:55)
[2022-07-09] MEDS: Enoxaparin 40 MG/0.4 ML SYR SUBCUT SCH (08:42)
[2022-07-09 10:53] VITALS: BP 167/66
== END 2022-07-09 12:15 | disposition home or self-care (01) | DRG 190 ==
LOC: ED 00:32 → EDHOLD 09:13 → INTOOBSV 09:13 → EDHOLD 10:31 → MEDTELE 10:53 → SUATTDRO 07-06 01:01
PROVIDERS: ADMIT Internal Medicine; ATTEND Hospitalist

== ENCOUNTER 2022-07-28 11:36 | Inpatient (IN) ==
[2022-07-28 12:39] LABS: ABS Eosinophils 0.1 10^3/ul (0-0.6); ABS Lymphocytes 0.8 10^3/ul (1.0-4.8); ABS Monocytes 1.2 10^3/ul (0-0.8); ABS Neutrophils 11.2 10^3/ul (1.5-7.7); Eosinophil % 0.9 %; Hematocrit 36 % (42-52); Hemoglobin 11.2 g/dL (14.0-18.0); Mean Corpuscular HGB Conc 31 g/dL (31-36); Mean Corpuscular Hemoglobin 27 pg (27-31); Mean Corpuscular Volume 87 fL (80-94); Mean Platelet Volume 8.4 fL (7.4-10.4); Platelet Count 222 10^3/uL (150-450); Red Blood Count 4.12 10^6 /uL (4.18-5.48); Red Cell Distribution Width 17 % (10-15); White Blood Count 13.3 10^3/uL (3.5-10.8)
[2022-07-28 13:08] LABS: Urine Appearance Clear; Urine Bilirubin Negative (Negative); Urine Blood Negative (Negative); Urine Color Colorless; Urine Glucose Negative (Negative); Urine Ketones Negative (Negative); Urine Nitrite Negative (Negative); Urine Protein Negative (Negative); Urine Urobilinogen 0.2 (Negative) (Negative); Urine pH 5.5 (5.0-9.0)
[2022-07-28 13:24] LABS: Albumin 3.6 g/dL (3.2-5.2); Albumin/Globulin Ratio 1.6 (1-3); C Reactive Protein 225.65 mg/L (<8.01); Globulin 2.2 g/dL (2-4); Total Bilirubin 0.8 mg/dL (0.2-1.0); Total Protein 5.8 g/dL (6.4-8.9); eGFR CKD-EPI 99.9 (>60)
[2022-07-28] MEDS ORDERED: Iodixanol (CONTRAST) 320 MG/ML 100 ML SDV IV ONE (13:34)
[2022-07-28] MEDS ORDERED: Albuterol/Ipratropium NEB.SOL (2.5/0.5 MG) 3 ML NEB.SOLN INH ONE (15:07)
[2022-07-28] MEDS ORDERED: methylPREDNISolone SOD SUCC 125 mg 2 ML VIAL IV ONE (15:22)
[2022-07-28] MEDS ORDERED: Senna TAB 8.6 mg TAB PO PRN (15:35)
[2022-07-28] MEDS ORDERED: Albuterol/Ipratropium NEB.SOL (2.5/0.5 MG) 3 ML NEB.SOLN INH PRN (15:44)
[2022-07-28] MEDS ORDERED: Azithromycin 500 mg/250 ml NS 500 MG/250 ML BAG IVPB ONE (15:47)
[2022-07-28 16:12] LABS: Magnesium 1.8 mg/dL (1.9-2.7)
[2022-07-28] MEDS ORDERED: Magnesium Sulfate 2 gm BAG 2 GM/50 ML BAG IVPB ONE (16:18)
[2022-07-28] MEDS ORDERED: Dextrose 50% Syringe 50 ml 25 GM/50 ML SYRINGE IV PUSH PRN (16:18)
[2022-07-28] MEDS ORDERED: cefTRIAXone 1 gm/50 mL D5W 1 GM/50 ML BAG IV ONE (17:00)
[2022-07-28] MEDS: Enoxaparin 40 MG/0.4 ML SYR SUBCUT SCH (18:14)
[2022-07-28] MEDS ORDERED: Polyethylene Glycol 3350 17 GM PACKET PO PRN (18:57)
[2022-07-28] MEDS: Mometasone/Formoter 200/5 MDI INH SCH (20:52)
[2022-07-28] MEDS ORDERED: Alfuzosin ER 10 mg TAB.ER (NF) 10 MG TAB.ER PO SCH (21:00)
[2022-07-28] MEDS: Mupirocin 2% OINT TUBE TOPICAL SCH (22:12)
[2022-07-28] MEDS: Clotrimazole 1% CREAM 30 gm TOPICAL PRN (22:13)
[2022-07-29 05:30] LABS: ABS Lymphocytes 0.5 10^3/ul (1.0-4.8); ABS Monocytes 0.2 10^3/ul (0-0.8); ABS Neutrophils 9.3 10^3/ul (1.5-7.7); Hematocrit 36 % (42-52); Hemoglobin 11.5 g/dL (14.0-18.0); Lymphocyte % 4.7 %; Mean Corpuscular HGB Conc 32 g/dL (31-36); Mean Corpuscular Hemoglobin 28 pg (27-31); Mean Corpuscular Volume 88 fL (80-94); Mean Platelet Volume 8.8 fL (7.4-10.4); Platelet Count 251 10^3/uL (150-450); Red Blood Count 4.16 10^6 /uL (4.18-5.48); Red Cell Distribution Width 17 % (10-15)
[2022-07-29 05:39] LABS: INR 1.06 (0.89-1.11)
[2022-07-29 06:33] LABS: Calcium 8.7 mg/dL (8.6-10.3); Magnesium 2.2 mg/dL (1.9-2.7); Potassium 4.7 mmol/L (3.5-5.0); eGFR CKD-EPI 101.2 (>60)
[2022-07-29] MEDS: Mometasone/Formoter 200/5 MDI INH SCH ×2 (08:31→19:55)
[2022-07-29] MEDS ORDERED: Aspirin EC 81 mg TAB.EC (enteric coated) PO SCH (09:00)
[2022-07-29] MEDS: Mupirocin 2% OINT TUBE TOPICAL SCH ×3 (10:08→20:39)
[2022-07-29] MEDS: Enoxaparin 40 MG/0.4 ML SYR SUBCUT SCH (16:45)
[2022-07-29] MEDS: cefTRIAXone 1 gm/50 mL D5W 1 GM/50 ML BAG IV SCH (19:05)
[2022-07-29] MEDS: Clotrimazole 1% CREAM 30 gm TOPICAL PRN (20:38)
[2022-07-30 05:55] LABS: ABS Neutrophils 11.3 10^3/ul (1.5-7.7); Eosinophil % 0.1 %; Hematocrit 35 % (42-52); Lymphocyte % 7.4 %; Mean Corpuscular HGB Conc 32 g/dL (31-36); Mean Corpuscular Hemoglobin 28 pg (27-31); Mean Corpuscular Volume 88 fL (80-94); Mean Platelet Volume 9.2 fL (7.4-10.4); Platelet Count 277 10^3/uL (150-450); Red Blood Count 3.93 10^6 /uL (4.18-5.48); Red Cell Distribution Width 16 % (10-15); White Blood Count 13.4 10^3/uL (3.5-10.8)
[2022-07-30 06:04] LABS: Blood Urea Nitrogen 14 mg/dL (6-24); CO2 Carbon Dioxide 34 mmol/L (22-32); Calcium 8.5 mg/dL (8.6-10.3); Chloride 104 mmol/L (101-111); Glucose 125 mg/dL (70-100); Sodium 145 mmol/L (135-145); eGFR CKD-EPI 102.6 (>60)
[2022-07-30 06:09] LABS: Anion Gap 7 mmol/L (2-11)
[2022-07-30 07:20] LABS: Potassium Redraw 4.8 mmol/L (3.5-5.0)
[2022-07-30 08:19] LABS: Total Iron Binding Capacity 234 mcg/dL (250-450); Transferrin 167 mg/dL (203-362)
[2022-07-30 08:39] LABS: Ferritin 142.4 ng/mL (24-336)
[2022-07-30 08:43] LABS: Folate 18.52 ng/mL (5.90-24.80)
[2022-07-30 08:44] LABS: Vitamin B12 262 pg/mL (180-914)
[2022-07-30] MEDS: Mometasone/Formoter 200/5 MDI INH SCH ×3 (08:49→19:20)
[2022-07-30] MEDS: Mupirocin 2% OINT TUBE TOPICAL SCH ×3 (09:36→21:27)
[2022-07-30] MEDS: Fluticasone NASAL SPRAY 50MCG 16 gm SPRAY BTL INTRANASAL PRN (13:16)
[2022-07-30] MEDS ORDERED: Albuterol HFA INHALER 8 gm MDI INH PRN (14:39)
[2022-07-30] MEDS: Enoxaparin 40 MG/0.4 ML SYR SUBCUT SCH (16:29)
[2022-07-30] MEDS: cefTRIAXone 1 gm/50 mL D5W 1 GM/50 ML BAG IV SCH (19:31)
[2022-07-30] MEDS: Clotrimazole 1% CREAM 30 gm TOPICAL PRN (22:31)
[2022-07-31 06:06] LABS: ABS Basophils 0.1 10^3/ul (0-0.2); ABS Eosinophils 0.1 10^3/ul (0-0.6); ABS Lymphocytes 1.2 10^3/ul (1.0-4.8); ABS Monocytes 0.9 10^3/ul (0-0.8); ABS Neutrophils 9.3 10^3/ul (1.5-7.7); Eosinophil % 0.5 %; Hematocrit 35 % (42-52); Hemoglobin 11.4 g/dL (14.0-18.0); Lymphocyte % 10.5 %; Mean Corpuscular HGB Conc 32 g/dL (31-36); Mean Corpuscular Hemoglobin 28 pg (27-31); Mean Corpuscular Volume 87 fL (80-94); Mean Platelet Volume 8.7 fL (7.4-10.4); Platelet Count 302 10^3/uL (150-450); Red Blood Count 4.06 10^6 /uL (4.18-5.48); Red Cell Distribution Width 17 % (10-15); White Blood Count 11.5 10^3/uL (3.5-10.8)
[2022-07-31 06:22] LABS: Calcium 8.1 mg/dL (8.6-10.3); Potassium 4.5 mmol/L (3.5-5.0); eGFR CKD-EPI 102.6 (>60)
[2022-07-31] MEDS ORDERED: Magnesium Hydroxide LIQ 30 ML UDC PO ONE (08:20)
[2022-07-31] MEDS: Fluticasone NASAL SPRAY 50MCG 16 gm SPRAY BTL INTRANASAL PRN (09:07)
[2022-07-31] MEDS: Mometasone/Formoter 200/5 MDI INH SCH ×2 (10:09→20:16)
[2022-07-31] MEDS: Mupirocin 2% OINT TUBE TOPICAL SCH ×2 (12:29→22:06)
[2022-07-31] MEDS: Enoxaparin 40 MG/0.4 ML SYR SUBCUT SCH (17:13)
[2022-07-31] MEDS: cefTRIAXone 1 gm/50 mL D5W 1 GM/50 ML BAG IV SCH (22:18)
[2022-08-01 06:05] LABS: ABS Eosinophils 0.1 10^3/ul (0-0.6); ABS Lymphocytes 1.8 10^3/ul (1.0-4.8); ABS Monocytes 1.1 10^3/ul (0-0.8); ABS Neutrophils 8.5 10^3/ul (1.5-7.7); Hematocrit 35 % (42-52); Lymphocyte % 15.7 %; Mean Corpuscular HGB Conc 32 g/dL (31-36); Mean Corpuscular Hemoglobin 28 pg (27-31); Mean Corpuscular Volume 87 fL (80-94); Mean Platelet Volume 8.2 fL (7.4-10.4); Platelet Count 297 10^3/uL (150-450); Red Blood Count 3.99 10^6 /uL (4.18-5.48); Red Cell Distribution Width 16 % (10-15); White Blood Count 11.5 10^3/uL (3.5-10.8)
[2022-08-01 06:26] LABS: Calcium 8.1 mg/dL (8.6-10.3); Potassium 4.2 mmol/L (3.5-5.0); eGFR CKD-EPI 104.6 (>60)
[2022-08-01] MEDS: Mometasone/Formoter 200/5 MDI INH SCH ×2 (08:29→19:50)
[2022-08-01] MEDS: Mupirocin 2% OINT TUBE TOPICAL SCH ×3 (09:14→19:00)
[2022-08-01] MEDS: Enoxaparin 40 MG/0.4 ML SYR SUBCUT SCH (18:05)
[2022-08-01] MEDS: cefTRIAXone 1 gm/50 mL D5W 1 GM/50 ML BAG IV SCH (19:15)
[2022-08-02 07:47] LABS: Hematocrit 36 % (42-52); Hemoglobin 11.6 g/dL (14.0-18.0); Mean Corpuscular HGB Conc 32 g/dL (31-36); Mean Corpuscular Hemoglobin 28 pg (27-31); Mean Corpuscular Volume 87 fL (80-94); Mean Platelet Volume 8.2 fL (7.4-10.4); Platelet Count 341 10^3/uL (150-450); Red Blood Count 4.18 10^6 /uL (4.18-5.48); Red Cell Distribution Width 16 % (10-15); White Blood Count 13.4 10^3/uL (3.5-10.8)
[2022-08-02 08:16] LABS: Calcium 8.5 mg/dL (8.6-10.3); Potassium 4.6 mmol/L (3.5-5.0); eGFR CKD-EPI 107.4 (>60)
[2022-08-02] MEDS: Mometasone/Formoter 200/5 MDI INH SCH ×2 (08:25→19:45)
[2022-08-02] MEDS: Mupirocin 2% OINT TUBE TOPICAL SCH ×3 (08:59→20:17)
[2022-08-03] MEDS ORDERED: Levalbuterol 1.25MG/0.5ML NEB.SOL INH ONE (07:16)
[2022-08-03] MEDS ORDERED: Buffered Lidocaine 1% SYRIN 1 ml INTRADERM ONE (07:16)
[2022-08-03] MEDS ORDERED: Levalbuterol 1.25MG/0.5ML NEB.SOL ONE (07:18)
[2022-08-03] MEDS ORDERED: Lactated Ringers 1000 ml BAG 1,000 ML IV SCH (08:00)
[2022-08-03] MEDS: Mometasone/Formoter 200/5 MDI INH SCH (08:41)
[2022-08-03] MEDS: Mupirocin 2% OINT TUBE TOPICAL SCH ×2 (11:53→14:21)
[2022-08-03 12:00] LABS: Hematocrit 38 % (42-52); Hemoglobin 11.9 g/dL (14.0-18.0); Mean Corpuscular HGB Conc 32 g/dL (31-36); Mean Corpuscular Hemoglobin 27 pg (27-31); Mean Corpuscular Volume 87 fL (80-94); Mean Platelet Volume 7.7 fL (7.4-10.4); Platelet Count 355 10^3/uL (150-450); Red Blood Count 4.33 10^6 /uL (4.18-5.48); Red Cell Distribution Width 17 % (10-15)
[2022-08-03 12:34] LABS: Calcium 8.5 mg/dL (8.6-10.3); Potassium 4.1 mmol/L (3.5-5.0); eGFR CKD-EPI 101.2 (>60)
[2022-08-03 14:28] LABS: ABS Eosinophils 0.2 10^3/ul (0-0.6); ABS Lymphocytes 1.9 10^3/ul (1.0-4.8); ABS Monocytes 0.8 10^3/ul (0-0.8); ABS Neutrophils 12.1 10^3/ul (1.5-7.7); Eosinophil % 1.5 %; Lymphocyte % 12.5 %; Nucleated Red Blood Cells % 0.1
[2022-08-03 16:06] VITALS: BP 136/59
[2022-08-03] MEDS ORDERED: Enoxaparin 40 MG/0.4 ML SYR SUBCUT SCH (20:00)
== END 2022-08-03 17:35 | disposition home health service (06) | DRG 190 ==
LOC: EDHOLD 11:36 → ED 11:36 → EDHOLD 20:01 → MED 20:23 → SUATTDRO 07-30 12:31
PROVIDERS: ADMIT Internal Medicine; ATTEND Internal Medicine

== ENCOUNTER 2022-10-16 10:08 | Observation (INO) ==
[2022-10-16] MEDS ORDERED: Magnesium Sulfate 2 gm BAG 2 GM/50 ML BAG IVPB ONE (10:16)
[2022-10-16] MEDS ORDERED: methylPREDNISolone SOD SUCC 125 mg 2 ML VIAL IV ONE (10:16)
[2022-10-16 11:32] LABS: High Sens Troponin Baseline 13 pg/mL (<20)
[2022-10-16 11:38] LABS: ALT 162 U/L (7-52); Albumin 3.3 g/dL (3.2-5.2); Albumin/Globulin Ratio 1.7 (1-3); Alkaline Phosphatase 55 U/L (35-149); Blood Urea Nitrogen 17 mg/dL (6-24); CO2 Carbon Dioxide 27 mmol/L (22-32); Calcium 7.1 mg/dL (8.6-10.3); Chloride 109 mmol/L (101-111); Glucose 94 mg/dL (70-100); Sodium 143 mmol/L (135-145); Total Protein 5.3 g/dL (6.4-8.9); eGFR CKD-EPI 107.9 (>60)
[2022-10-16 11:44] LABS: Anion Gap 7 mmol/L (2-11)
[2022-10-16 11:47] LABS: Hematocrit 42 % (42-52); Hemoglobin 13.3 g/dL (14.0-18.0); Mean Corpuscular HGB Conc 32 g/dL (31-36); Mean Corpuscular Hemoglobin 28 pg (27-31); Mean Corpuscular Volume 87 fL (80-94); Red Blood Count 4.82 10^6 /uL (4.18-5.48); Red Cell Distribution Width 17 % (10-15); White Blood Count 12.5 10^3/uL (3.5-10.8)
[2022-10-16] MEDS ORDERED: cefTRIAXone 1 gm/50 mL D5W 1 GM/50 ML BAG IV ONE (12:04)
[2022-10-16] MEDS ORDERED: Azithromycin 500 mg/250 ml NS 500 MG/250 ML BAG IVPB ONE (12:04)
[2022-10-16 12:13] LABS: ABS Basophils 0.1 10^3/ul (0-0.2); ABS Eosinophils 0.1 10^3/ul (0-0.6); ABS Lymphocytes 1.4 10^3/ul (1.0-4.8); ABS Monocytes 1.3 10^3/ul (0-0.8); ABS Neutrophils 9.6 10^3/ul (1.5-7.7); Lymphocyte % 11.3 %; Mean Platelet Volume 9.2 fL (7.4-10.4); Nucleated Red Blood Cells % 0.2; Platelet Count 246 10^3/uL (150-450)
[2022-10-16 12:58] LABS: High Sensitivity Troponin 1 Hr 15 pg/mL (<20)
[2022-10-16 13:40] LABS: Potassium Redraw 4.4 mmol/L (3.5-5.0)
[2022-10-16] MEDS ORDERED: Senna TAB 8.6 mg TAB PO PRN (15:07)
[2022-10-16] MEDS ORDERED: Albuterol/Ipratropium NEB.SOL (2.5/0.5 MG) 3 ML NEB.SOLN INH PRN (15:07)
[2022-10-16] MEDS ORDERED: Albuterol HFA INHALER 8 gm MDI INH PRN (15:07)
[2022-10-16] MEDS ORDERED: Dextrose 50% Syringe 50 ml 25 GM/50 ML SYRINGE IV PUSH PRN (16:18)
[2022-10-16] MEDS ORDERED: Calcium Gluconate 3 GM in NS 0.9% 250 ml 250 ML IV ONE (16:30)
[2022-10-16 16:42] LABS: C Reactive Protein 1.72 mg/L (<8.01)
[2022-10-16 16:46] LABS: Urine Appearance Clear; Urine Bilirubin Negative (Negative); Urine Blood Negative (Negative); Urine Color Straw; Urine Glucose Negative (Negative); Urine Ketones Negative (Negative); Urine Nitrite Negative (Negative); Urine Protein Negative (Negative); Urine Urobilinogen 0.2 (Negative) (Negative)
[2022-10-16] MEDS: Enoxaparin 40 MG/0.4 ML SYR SUBCUT SCH (18:46)
[2022-10-16] MEDS: Polyethylene Glycol 3350 17 GM PACKET PO SCH (20:43)
[2022-10-17 06:52] LABS: ABS Basophils 0.1 10^3/ul (0-0.2); ABS Lymphocytes 1.8 10^3/ul (1.0-4.8); ABS Monocytes 1.2 10^3/ul (0-0.8); Eosinophil % 0.4 %; Hematocrit 38 % (42-52); Hemoglobin 12.4 g/dL (14.0-18.0); Lymphocyte % 16.1 %; Mean Corpuscular HGB Conc 33 g/dL (31-36); Mean Corpuscular Hemoglobin 28 pg (27-31); Mean Corpuscular Volume 87 fL (80-94); Mean Platelet Volume 8.9 fL (7.4-10.4); Platelet Count 243 10^3/uL (150-450); Red Blood Count 4.36 10^6 /uL (4.18-5.48); Red Cell Distribution Width 17 % (10-15); White Blood Count 11.2 10^3/uL (3.5-10.8)
[2022-10-17 07:12] LABS: Albumin 3.6 g/dL (3.2-5.2); Albumin/Globulin Ratio 1.6 (1-3); Calcium 8.9 mg/dL (8.6-10.3); Globulin 2.2 g/dL (2-4); HDL Cholesterol 34.7 mg/dL; Magnesium 1.9 mg/dL (1.9-2.7); Phosphorus 4.6 mg/dL (2.5-5.0); Potassium 4.7 mmol/L (3.5-5.0); Total Bilirubin 0.5 mg/dL (0.2-1.0); Total Protein 5.8 g/dL (6.4-8.9); eGFR CKD-EPI 103.6 (>60)
[2022-10-17 07:26] LABS: TSH Ultra Thyroid Stim Horm 1.54 mcIU/mL (0.34-5.60)
[2022-10-17] MEDS: Polyethylene Glycol 3350 17 GM PACKET PO SCH ×2 (08:08→22:05)
[2022-10-17] MEDS: Aspirin EC 81 mg TAB.EC (enteric coated) PO SCH (09:31)
[2022-10-17] MEDS: Morphine ORAL CONCENTRATE 5 MG/0.25 ML ORAL.SYRIN SL PRN ×2 (11:46→22:06)
[2022-10-17] MEDS ORDERED: cefTRIAXone 1 gm/50 mL D5W 1 GM/50 ML BAG IV SCH (12:00)
[2022-10-17] MEDS ORDERED: Azithromycin 500 mg/250 ml NS 500 MG/250 ML BAG IVPB SCH (13:00)
[2022-10-17] MEDS: Enoxaparin 40 MG/0.4 ML SYR SUBCUT SCH (18:12)
[2022-10-18] MEDS: Ondansetron ODT 4 mg TAB 4 MG TAB SL PRN ×2 (02:34→08:15)
[2022-10-18] MEDS: Morphine ORAL CONCENTRATE 5 MG/0.25 ML ORAL.SYRIN SL PRN ×4 (02:34→13:40)
[2022-10-18 06:24] LABS: Albumin 3.5 g/dL (3.2-5.2); Albumin/Globulin Ratio 1.8 (1-3); Direct Bilirubin 0.1 mg/dL (0.03-0.18); Indirect Bilirubin 0.4 mg/dL (0.3-1.0); Total Bilirubin 0.5 mg/dL (0.2-1.0); Total Protein 5.5 g/dL (6.4-8.9)
[2022-10-18] MEDS: Aspirin EC 81 mg TAB.EC (enteric coated) PO SCH (08:11)
[2022-10-18] MEDS: Polyethylene Glycol 3350 17 GM PACKET PO SCH (08:14)
[2022-10-18 11:17] VITALS: BP 147/79
== END 2022-10-18 16:50 | disposition home or self-care (01) ==
LOC: EDHOLD 10:08 → ED 10:08 → SUATTDRO 12:15 → EDHOLD 19:47 → MEDTELE 20:06 → MED 10-18 09:56
PROVIDERS: ADMIT Internal Medicine; ATTEND Internal Medicine